=== PATIENT | female | born 1985 | race Caucasian/White ===

== ENCOUNTER 2020-12-07 19:44 | Emergency (ER) | payer BC, MEDICAID, SELFPAY ==
[2020-12-07 19:53] VITALS: BP 117/63; PULSE 110; RESP 18; TEMP 36.4; O2SAT 97; BMI 29.0
[2020-12-07] MEDS: ondansetron 4 MG Tablet PO (20:02)
--- NOTE | 2020-12-07 21:24 | W.ED.ABDPA2 ---
HPI - Abdominal Pain General: Chief Complaint: Abdominal Pain Stated Complaint: Vomiting, Diarrhea, hurting Time Seen by Provider: 12/07/20 21:16 History of Present Illness: HPI narrative: This patient presents to emergency department because of abdominal cramping, loose stools, intermittent vomiting over the past 24 hours. She is also stated that she has headache and generalized body aches. She states that she is not had much in the way of cough sore throat etc. She did have subjective fevers last night. She has had prior cholecystectomy, appendectomy, hysterectomy. She has had little urine output today. She denies any known recent exposure to COVID-19. No one else is ill at home. No bad food exposure, no recent travel, no recent antibiotic use. No blood in her stool or emesis. Quality: cramping Exacerbating factors: eating Associated Symptoms: Reports fever(s) and vomiting; Denies coffee ground emesis, dysuria, hematochezia, hematemesis, melena and syncope Review of Systems Const: Reports: fever(s) Eyes: Denies: change in vision ENMT: Denies: throat pain or odynophagia Card: Denies: syncope Resp: Denies: dyspnea or productive cough GI: Reports: vomiting; Denies: hematemesis, coffee ground emesis, hematochezia or melena : Denies: dysuria Musc: Reports: back pain and joint pain; Denies: neck pain Skin/Breast: Denies: rash or pruritus Endo: Denies: polyuria, polydipsia or cold intolerance Physical Exam Const: COMMON NORMALS: average body habitus and patient oriented x3 HENMT: COMMON NORMALS: normocephalic HEAD & SCALP: normocephalic Eye: COMMON NORMALS: Equal, round and reactive pupils present, EOMs intact bilaterally and no scleral icterus PUPIL: Yes Equal, round and reactive pupils present Neck/C-Spine: COMMON NORMALS: full ROM, no lymphadenopathy, supple and no meningeal signs Lymph: LYMPHATIC: no lymphadenopathy noted Resp: COMMON NORMALS: normal respiratory effort, No retractions, No use of accessory muscles and clear to auscultation bilaterally AUSCULTATION: clear to auscultation bilaterally Cardio: COMMON NORMALS: regular rhythm and No murmurs present (Cardio) RATE: tachycardic RHYTHM: regular rhythm GI: COMMON NORMALS: Normal to inspection, nondistended, normoactive bowel sounds present, No hepatosplenomegaly present and no masses AUSCULTATION: Yes normoactive bowel sounds PALPATION: Yes No hepatosplenomegaly present and No Rebound tenderness present OTHER: Mild tenderness no rebound or guarding. Tenderness predominantly generalized. : COMMON NORMALS: Yes no CVA tenderness BLADDER/KIDNEY EXAM: Yes no CVA tenderness Back/Pelvis: COMMON NORMALS: no CVA tenderness, thoracic and lumbar spine normal to inspection, no thoracic nor lumbar tenderness and thoraco-lumbar ROM normal THORACIC SPINE/UPPER BACK: Yes normal to inspection LUMBAR SPINE/LOWER BACK: Yes normal to inspection Extremity: COMMON NORMALS: normal to inspection, full ROM, no clubbing, cyanosis or edema, no calf tenderness and no pedal edema Neuro: COMMON NORMALS: patient oriented x3, moves all extremities, no focal motor deficits, no sensory deficits noted and gait normal MENINGEAL SIGNS: Yes no meningeal signs Psych: COMMON NORMALS: mental status grossly normal, Normal thought process present and normal affect THOUGHT PROCESS: Normal thought process present Skin: COMMON NORMALS: no rashes or lesions noted, turgor normal and no jaundice GENERAL SKIN EXAM: no rashes or lesions noted and turgor normal Course ED course: Patient received IV hydration and antiemetics. She was subjectively improved. Ancillary studies were received. COVID-19 negative. No leukocytosis. Does have moderate directly abnormal urinalysis and not combined with her malaise subjective fevers and back pain suggest possible urinary tract infection. We will go ahead and give her a gram of Ancef in the emergency department and discharge her on 5 days of Keflex with antiemetics with close return precautions. She voiced understanding. Stable for discharge. Vital Signs: Vital signs: Vital Signs Temperature 97.6 F 12/07/20 19:53 Pulse Rate 110 H 12/07/20 19:53 Respiratory Rate 20 H 12/07/20 21:52 Blood Pressure 96/72 12/07/20 21:52 Pulse Oximetry 95 12/07/20 21:52 MDM - Abdominal Pain Lab Data: Labs: Lab Results 12/07/20 12/07/20 12/07/20 21:47 21:47 22:02 WBC 7.6 10^3/uL 10^3/ uL (4.0-10.0) RBC 5.74 10^6/uL H 10 ^6/uL (4.1-5.3) Hgb 16.1 g/dL H g/dL (11.5-15.3) Hct 49.8 % H % (37.0-47.0) MCV 86.8 fl fl (81-99) MCH 28.0 pg pg (28.0-34.0) MCHC 32.3 g/dL g/dL (30.0-36.0) RDW 13.0 % % (12.1-15.1) Plt Count 264 10^3/cmm 10^3 /cmm (130-400) MPV 10.2 fL fL (7.4-10.4) Neut % (Auto) 76.5 % % Lymph % (Auto) 14.5 % % Carbon % (Auto) 8.4 % % Eos % (Auto) 0.1 % % Baso % (Auto) 0.4 % % Neut # (Auto) 5.82 10^3/uL 10^3 /uL (1.8-7.7) Lymph # (Auto) 1.1 10^3/uL 10^3/ uL (0.8-4.8) Carbon # (Auto) 0.6 10^3/uL 10^3/ uL (0.2-0.9) Eos # (Auto) 0.0 10^3/uL 10^3/ uL (0.0-0.8) Baso # (Auto) 0.0 10^3/uL 10^3/ uL (0.0-0.1) Nucleated RBC % (a uto) 0 % % Nucleated RBCs # 0.0 /100WBC /100W BC Sodium 133 mmol/L L mmol /L (136-145) Potassium 3.5 mmol/L mmol/L (3.5-5.1) Chloride 96 mmol/L L mmol/ L (98-107) Carbon Dioxide 22 mmol/L mmol/L (22-29) Anion Gap 18.5 (5-19) BUN 17 mg/dL mg/dL (6-20) Creatinine 0.8 mg/dL mg/dL (0.5-0.9) GFR Calculation 82.6 mL/min L mL/ min (90-130) Glucose 109 mg/dL mg/dL (65-115) Calculated Osmolal ity 278 mOsm/kg L mOs m/kg (285-295) Calcium 9.7 mg/dL mg/dL (8.5-10.5) Total Bilirubin 0.3 mg/dL mg/dL (0.15-1.2) AST 11 U/L U/L (0-32) ALT 12 U/L U/L (0-33) Alkaline Phosphata se 109 IU/L H IU/L (35-105) Total Protein 8.4 g/dL g/dL (6.6-8.7) Albumin 4.6 g/dL g/dL (3.5-5.2) Globulin 3.8 g/dL g/dL (1.3-4.6) Urine Color Urine Appearance Urine pH Ur Specific Gravit y Urine Protein Urine Glucose (UA) Urine Ketones Urine Blood Urine Nitrate Urine Bilirubin Urine Urobilinogen Ur Leukocyte Monique ase Urine RBC Urine WBC Ur Squamous Epith Cells Amorphous Sediment Urine Bacteria Hyaline Casts Urine Mucus SARS-CoV-2 Ag (Rap id) Negative (Negative) 12/07/20 22:11 WBC RBC Hgb Hct MCV MCH MCHC RDW Plt Count MPV Neut % (Auto) Lymph % (Auto) Carbon % (Auto) Eos % (Auto) Baso % (Auto) Neut # (Auto) Lymph # (Auto) Carbon # (Auto) Eos # (Auto) Baso # (Auto) Nucleated RBC % (a uto) Nucleated RBCs # Sodium Potassium Chloride Carbon Dioxide Anion Gap BUN Creatinine GFR Calculation Glucose Calculated Osmolal ity Calcium Total Bilirubin AST ALT Alkaline Phosphata se Total Protein Albumin Globulin Urine Color Yellow (Yellow) Urine Appearance Sl hazy (CLEAR) Urine pH 5 (5-7) Ur Specific Gravit y 1.025 (1.005-1.030) Urine Protein Trace (Negative) Urine Glucose (UA) Norm (Normal) Urine Ketones Negative (Negative) Urine Blood 3+ H (Negative) Urine Nitrate Negative (Negative) Urine Bilirubin 1+ H (Negative) Urine Urobilinogen Norm mg/dL mg/dL (Negative) Ur Leukocyte Monique ase Negative (Negative) Urine RBC 0-4 /hpf H /hpf (0-2) Urine WBC 5-10 /hpf H /hpf (0-5) Ur Squamous Epith Cells 0-4 /hpf H /hpf (0-5) Amorphous Sediment Not Reportable Urine Bacteria Trace /hpf /hpf (NONE) Hyaline Casts 10-15 /lpf H /lpf Urine Mucus 3+ /hpf /hpf SARS-CoV-2 Ag (Rap id) Discharge Plan Discharge Patient Disposition: Home Clinical Impression: UTI (urinary tract infection) Qualifiers: Urinary tract infection type: site unspecified Hematuria presence: with hematuria Qualified Code(s): N39.0 - Urinary tract infection, site not specified Condition: Stable Prescriptions: New cephalexin 500 mg capsule 500 mg PO BID 7 Days Qty: 14 RF: 0 Reglan 10 mg tablet 10 mg PO TID PRN (Reason: nausea and vomiting) Qty: 7 RF: 0 Discharge Orders: Discharge ED (Routine); Ordered 12/07/20 Ordered By: Josh Decker Discharge Diet: Advance as tolerated Discharge Activity: Resume usual activity Patient Instructions: Opioid Safety Activity Restrictions/Additional Instructions: Take the medications we have prescribed. Make sure you are drinking at least a quart of fluids a day to include water and sports drinks. Resume a bland and then a regular diet as tolerated. If your symptoms do not continue to improve or worsen at any time return to this or the nearest emergency department for reevaluation. Coding Level of Care Code ED [employer] Equipment Mechanic for Tristan Fwd Exam Comprehensive
[2020-12-07] MEDS: ketorolac 30 mg/mL INJ 15 MG IVP (21:32)
[2020-12-07 21:52] VITALS: BP 96/72; RESP 20; O2SAT 95
[2020-12-07 21:55] LABS: Basophils % 0.4 %; Eosinophils % 0.1 %; Hematocrit 49.8 % (37.0-47.0); Hemoglobin 16.1 g/dL (11.5-15.3); Lymphocytes # 1.1 10^3/uL (0.8-4.8); Lymphocytes % 14.5 %; Mean Corpuscular HGB Conc 32.3 g/dL (30.0-36.0); Mean Corpuscular Volume 86.8 fl (81-99); Mean Platelet Volume 10.2 fL (7.4-10.4); Monocytes # 0.6 10^3/uL (0.2-0.9); Monocytes % 8.4 %; Neutrophils # 5.82 10^3/uL (1.8-7.7); Neutrophils % 76.5 %; Nucleated Red Blood Cells % 0 %; Platelet Count 264 10^3/cmm (130-400); Red Blood Count 5.74 10^6/uL (4.1-5.3); White Blood Count 7.6 10^3/uL (4.0-10.0)
[2020-12-07] MEDS: metoclopramide 5 mg/mL SDV 2 mL 10 MG IVP (22:00)
[2020-12-07] MEDS: lactated ringers 1,000 ML 999 ML IV (22:00)
[2020-12-07 22:15] LABS: Alanine Aminotransferase 12 U/L (0-33); Albumin Level 4.6 g/dL (3.5-5.2); Alkaline Phosphatase 109 IU/L (35-105); Anion Gap 18.5 (5-19); Aspartate Amino Transferase 11 U/L (0-32); Blood Urea Nitrogen 17 mg/dL (6-20); Calcium 9.7 mg/dL (8.5-10.5); Carbon Dioxide 22 mmol/L (22-29); Chloride 96 mmol/L (98-107); Globulin 3.8 g/dL (1.3-4.6); Glomerular Filtration Rate 82.6 mL/min (90-130); Glucose 109 mg/dL (65-115); Osmolality Calculated 278 mOsm/kg (285-295); Potassium 3.5 mmol/L (3.5-5.1); Sodium 133 mmol/L (136-145); Total Bilirubin 0.3 mg/dL (0.15-1.2); Total Protein 8.4 g/dL (6.6-8.7)
[2020-12-07 22:33] LABS: Add Urine Microscopic? YES; Bilirubin Urine 1+ (Negative); Blood Urine 3+ (Negative); Glucose Urine UA Norm (Normal); Ketones Urine Negative (Negative); Leukocyte Esterase Urine Negative (Negative); Nitrate Urine Negative (Negative); Protein Urine Trace (Negative); Specific Gravity, Urine 1.025 (1.005-1.030); Urine Appearance SL Hazy (CLEAR); Urine Color Yellow (Yellow); Urobilinogen Urine Norm (Negative); pH Urine 5 (5-7)
[2020-12-07 22:34] LABS: Add Urine Culture? No; Bacteria Urine TRACE /hpf; Mucus Urine 3+ /hpf; RBC Urine 0-4 /hpf (0-2); Squamous Epithelial Cell Urine 0-4 /hpf (0-5)
[2020-12-07 22:38] LABS: SARS Covid-2 Antigen Negative (Negative)
[2020-12-07] MEDS: ceFAZolin 1,000 MG in sodium chloride 0.9% (plus) 50 ML 100 MG IV (22:58)
[2020-12-07 23:44] VITALS: BP 92/60; PULSE 95; RESP 20; O2SAT 96
== END 2020-12-07 23:46 | disposition home or self-care (01) ==
PROVIDERS: Nurse Practitioner Family; Emergency Provider Emergency Medicine
DX: N39.0 Urinary tract infection, site not specified (principal); Z20.822 Contact with and (suspected) exposure to COVID-19
CPT/HCPCS: 80053; 81001; 85025; 87086; 87426; 96365; 96375; 99284; J0690; J1885; J2765; Q0162

== ENCOUNTER 2020-12-09 19:44 | Emergency (ER) | payer BC, MEDICAID, SELFPAY ==
[2020-12-09 19:52] VITALS: BP 113/73; PULSE 85; RESP 20; TEMP 36.7; O2SAT 97; BMI 29.0
--- NOTE | 2020-12-09 19:57 | CTR_ITS ---
PROCEDURE INFORMATION: Exam: CT Abdomen And Pelvis With Contrast Exam date and time: 12/09/2020 7:57 PM Age: 35 years old Clinical indication: Abdominal pain; Localized; Lower; Prior surgery; Surgery date: 6+ months; Surgery type: Appy, gb; Patient HX: C/O abd pain w rectal bleeding TECHNIQUE: Imaging protocol: Computed tomography of the abdomen and pelvis with contrast. Radiation optimization: All CT scans at this facility use at least one of these dose optimization techniques: automated exposure control; mA and/or kV adjustment per patient size (includes targeted exams where dose is matched to clinical indication); or iterative reconstruction. Contrast material: OMNI 300; Contrast volume: 95 ml; Contrast route: INTRAVENOUS (IV); COMPARISON: No relevant prior studies available. RADIATION DOSE METRICS: Total DLP (mGy-cm): 1446.42 FINDINGS: Liver: Normal. No mass. Gallbladder and bile ducts: Cholecystectomy. Mild prominence of the bile ducts is most likely reservoir effect. Pancreas: Normal. No ductal dilation. Spleen: Calcified granulomas in the spleen. Adrenal glands: Normal. No mass. Kidneys and ureters: Normal. No hydronephrosis. Stomach and bowel: Scattered fluid throughout the colon to the rectum, likely indicating diarrhea. No visible wall thickening. No diverticulosis. The small bowel and stomach are unremarkable. No wall thickening or obstruction. Appendix: The appendix is absent. Intraperitoneal space: Unremarkable. No free air. No significant fluid collection. Vasculature: Unremarkable. No abdominal aortic aneurysm. Lymph nodes: Multiple prominent mesenteric lymph nodes, most likely reactive. Urinary bladder: Unremarkable as visualized. Reproductive: The uterus and ovaries are absent. Bones/joints: Unremarkable. No acute fracture. Soft tissues: Unremarkable. CT/CT abdomen pelvis w con* [id number] IMPRESSION: 1. Scattered fluid throughout the colon most likely indicates diarrhea. 2. Prominent mesenteric lymph nodes most likely represents adenitis. Radiation Dose CTDIVOL = (mGy): DLP = 1446.42 (mGy-cm)
--- NOTE | 2020-12-09 19:59 | W.ED.ABDPA2 ---
HPI - Abdominal Pain General: Chief Complaint: Abdominal Pain Stated Complaint: ABDOMINAL PAIN/ RECTAL BLEEDING Time Seen by Provider: 12/09/20 19:51 Source: patient and EMS Mode of arrival: EMS Limitations: no limitations History of Present Illness: HPI narrative: 35-year-old female states that over the last 5 to 6 days she been having diffuse abdominal pain along with vomiting and diarrhea. She was seen here 2 days ago diagnosed a UTI and states she been on antibiotics but her pain is worsened. States pain is sharp in nature and rates it a 6 out of 10. States she is now having some slight bright red blood in her diarrhea as well. Denies any fevers. Denies any worsening improving factors. Denies any vomiting blood. Associated Symptoms: Reports diarrhea, nausea and vomiting; Denies chills, dysuria and fever(s) Review of Systems Const: Denies: fever(s), chills, body aches or change in appetite Eyes: Denies: blurry vision or eye discomfort ENMT: Denies: throat pain or dental pain Card: Denies: chest pain Resp: Denies: dyspnea GI: Reports: abdominal pain, nausea, vomiting and diarrhea : Denies: dysuria Musc: Denies: neck pain or back pain Skin/Breast: Denies: rash Neuro: Denies: headache(s) Psych: Denies: depression [place]/Lymph: Denies: easy bruising All/Imm: Denies: urticaria Physical Exam Const: COMMON NORMALS: no acute distress, patient oriented x3 and healthy appearing HENMT: COMMON NORMALS: normocephalic and atraumatic HEAD & SCALP: normocephalic and atraumatic Eye: COMMON NORMALS: Equal, round and reactive pupils present and EOMs intact bilaterally PUPIL: Yes Equal, round and reactive pupils present Neck/C-Spine: COMMON NORMALS: full ROM and supple Chest: COMMONS NORMALS: normal inspection of the chest and normal palpation of entire chest wall Resp: COMMON NORMALS: normal respiratory effort, No retractions, No use of accessory muscles and clear to auscultation bilaterally AUSCULTATION: clear to auscultation bilaterally Cardio: COMMON NORMALS: regular rate, regular rhythm and No murmurs present (Cardio) RATE: regular rate RHYTHM: regular rhythm GI: COMMON NORMALS: Normal to inspection, nondistended, normoactive bowel sounds present, Soft to palpation and no masses PALPATION: Yes Soft to palpation OTHER: diffuse moderate tenderness Extremity: COMMON NORMALS: normal to inspection and full ROM Neuro: COMMON NORMALS: patient oriented x3, moves all extremities and no focal motor deficits Psych: COMMON NORMALS: mental status grossly normal, Normal thought process present and cooperative THOUGHT PROCESS: Normal thought process present Skin: COMMON NORMALS: no rashes or lesions noted and no wounds GENERAL SKIN EXAM: no rashes or lesions noted Course Vital Signs: Vital signs: Vital Signs Temperature 97.9 F 12/09/20 20:11 Pulse Rate 79 12/09/20 21:28 Respiratory Rate 15 12/09/20 21:28 Blood Pressure 112/90 12/09/20 21:28 Pulse Oximetry 94 12/09/20 21:28 MDM - Abdominal Pain MDM Narrative: Medical decision making narrative: Patient presents with abdominal pain. She said no blood in her stool here and hemoglobin is normal. CT scan of her abdomen here is normal as well along with normal blood work. We will place her on pain meds continue her antibiotics for her UTI. She does also have a very small piece of glass in her left foot. It is 2 mm and too small to be able to try to remove. She is to follow-up with PCP and return if worsening. Lab Data: Labs: Lab Results 12/09/20 12/09/20 12/09/20 20:02 20:02 20:02 WBC 6.5 10^3/uL 10^3/ uL (4.0-10.0) RBC 5.75 10^6/uL H 10 ^6/uL (4.1-5.3) Hgb 16.3 g/dL H g/dL (11.5-15.3) Hct 47.7 % H % (37.0-47.0) MCV 83.0 fl fl (81-99) MCH 28.3 pg pg (28.0-34.0) MCHC 34.2 g/dL g/dL (30.0-36.0) RDW 12.3 % % (12.1-15.1) Plt Count 289 10^3/cmm 10^3 /cmm (130-400) MPV 10.6 fL H fL (7.4-10.4) Neut % (Auto) 53.9 % % Lymph % (Auto) 27.2 % % [place] % (Auto) 16.2 % % Eos % (Auto) 1.5 % % Baso % (Auto) 0.6 % % Neut # (Auto) 3.49 10^3/uL 10^3 /uL (1.8-7.7) Lymph # (Auto) 1.8 10^3/uL 10^3/ uL (0.8-4.8) [place] # (Auto) 1.1 10^3/uL H 10^ 3/uL (0.2-0.9) Eos # (Auto) 0.1 10^3/uL 10^3/ uL (0.0-0.8) Baso # (Auto) 0.0 10^3/uL 10^3/ uL (0.0-0.1) Nucleated RBC % (a uto) 0 % % Nucleated RBCs # 0.0 /100WBC /100W BC Sodium 132 mmol/L L mmol /L (136-145) Potassium 3.2 mmol/L L mmol /L (3.5-5.1) Chloride 93 mmol/L L mmol/ L (98-107) Carbon Dioxide 22 mmol/L mmol/L (22-29) Anion Gap 20.2 H (5-19) BUN 21 mg/dL H mg/dL (6-20) Creatinine 0.6 mg/dL mg/dL (0.5-0.9) GFR Calculation 115.1 mL/min mL/m in (90-130) Glucose 107 mg/dL mg/dL (65-115) Calculated Osmolal ity 277 mOsm/kg L mOs m/kg (285-295) Calcium 9.8 mg/dL mg/dL (8.5-10.5) Total Bilirubin 0.2 mg/dL mg/dL (0.15-1.2) AST 42 U/L H U/L (0-32) ALT 47 U/L H U/L (0-33) Alkaline Phosphata se 140 IU/L H IU/L (35-105) Total Protein 8.3 g/dL g/dL (6.6-8.7) Albumin 4.5 g/dL g/dL (3.5-5.2) Globulin 3.8 g/dL g/dL (1.3-4.6) Lipase 19 U/L U/L (13-60) HCG, Qual Negative (Negative) Urine Color Urine Appearance Urine pH Ur Specific Gravit y Urine Protein Urine Glucose (UA) Urine Ketones Urine Blood Urine Nitrate Urine Bilirubin Urine Urobilinogen Ur Leukocyte Monique ase Urine RBC Urine WBC Ur Squamous Epith Cells Amorphous Sediment Urine Bacteria 12/09/20 21:31 WBC RBC Hgb Hct MCV MCH MCHC RDW Plt Count MPV Neut % (Auto) Lymph % (Auto) [place] % (Auto) Eos % (Auto) Baso % (Auto) Neut # (Auto) Lymph # (Auto) [place] # (Auto) Eos # (Auto) Baso # (Auto) Nucleated RBC % (a uto) Nucleated RBCs # Sodium Potassium Chloride Carbon Dioxide Anion Gap BUN Creatinine GFR Calculation Glucose Calculated Osmolal ity Calcium Total Bilirubin AST ALT Alkaline Phosphata se Total Protein Albumin Globulin Lipase HCG, Qual Urine Color Yellow (Yellow) Urine Appearance Clear (CLEAR) Urine pH 7 (5-7) Ur Specific Gravit y 1.010 (1.005-1.030) Urine Protein Trace (Negative) Urine Glucose (UA) Norm (Normal) Urine Ketones 1+ H (Negative) Urine Blood 3+ H (Negative) Urine Nitrate Negative (Negative) Urine Bilirubin Neg (Negative) Urine Urobilinogen Norm mg/dL mg/dL (Negative) Ur Leukocyte Monique ase Negative (Negative) Urine RBC 25-40 /hpf H /hpf (0-2) Urine WBC 0-4 /hpf H /hpf (0-5) Ur Squamous Epith Cells 0-4 /hpf H /hpf (0-5) Amorphous Sediment Not Reportable Urine Bacteria Trace /hpf /hpf (NONE) Imaging Data ^: Other Xray: Radiologist's impression: [employer] [address] [address] XRay Report Signed with Lory Patient: Wendy Ivan Unit #: [id number] : 1985 Age/Sex: 35 / F ADM Date: 12/09/20 Loc: ER Room/Bed: Attending Dr: Ordering Provider/Ordering MD: Lilli Garibay MD Date of Service: 12/09/20 Procedure(s): XR foot LT min 3V* [id number] Accession Number(s): [id number] Report Number: [id number] ADDENDUM XR/XR foot LT min 3V* [id number] On the lateral view only, there is a 2 mm linear radiopaque foreign body just beneath the skin in the plantar heel. This is 1.5 mm deep to the skin surface. Radiation Dose CTDIVOL = (mGy): DLP = (mGy-cm) Addendum Dictated By: Darrell Mireles Addendum Signed By: Darrell Mireles Signed Date/Time: 12/09/20 201 Addendum Cosigned By: PROCEDURE INFORMATION: Exam: XR Left Foot Exam date and time: 12/09/2020 8:16 PM Age: 35 years old Clinical indication: Pain; Foot; Patient HX: PT feels like she has a piece of glass in her left heel; Additional info: Fb TECHNIQUE: Imaging protocol: XR Left foot. Views: 3 or more views. COMPARISON: No relevant prior studies available. FINDINGS: Bones/joints: Normal. Soft tissues: Normal. XR/XR foot LT min 3V* [id number] IMPRESSION: No acute findings. Radiation Dose CTDIVOL = (mGy): DLP = (mGy-cm) Dictated By: Darrell Mireles Signed By: Darrell Mireles Signed Date/Time: 12/09/202199 DD/ 15 CT Abd/Pel: Radiologist's impression: [address] [address] [address] Scan Report Signed Patient: Wendy Ivan Unit #: [id number] : 1985 Age/Sex: 35 / F ADM Date: 12/09/20 Loc: ER Room/Bed: Attending Dr: Ordering Provider/Ordering MD: Lilli Garibay MD Date of Service: 12/09/20 Procedure(s): CT abdomen pelvis w con* [id number] Accession Number(s): [id number] Report Number: [id number] PROCEDURE INFORMATION: Exam: CT Abdomen And Pelvis With Contrast Exam date and time: 12/09/2020 7:57 PM Age: 35 years old Clinical indication: Abdominal pain; Localized; Lower; Prior surgery; Surgery date: 6+ months; Surgery type: Appy, gb; Patient HX: C/O abd pain w rectal bleeding TECHNIQUE: Imaging protocol: Computed tomography of the abdomen and pelvis with contrast. Radiation optimization: All CT scans at this facility use at least one of these dose optimization techniques: automated exposure control; mA and/or kV adjustment per patient size (includes targeted exams where dose is matched to clinical indication); or iterative reconstruction. Contrast material: OMNI 300; Contrast volume: 95 ml; Contrast route: INTRAVENOUS (IV); COMPARISON: No relevant prior studies available. RADIATION DOSE METRICS: Total DLP (mGy-cm): 1446.42 FINDINGS: Liver: Normal. No mass. Gallbladder and bile ducts: Cholecystectomy. Mild prominence of the bile ducts is most likely reservoir effect. Pancreas: Normal. No ductal dilation. Spleen: Calcified granulomas in the spleen. Adrenal glands: Normal. No mass. Kidneys and ureters: Normal. No hydronephrosis. Stomach and bowel: Scattered fluid throughout the colon to the rectum, likely indicating diarrhea. No visible wall thickening. No diverticulosis. The small bowel and stomach are unremarkable. No wall thickening or obstruction. Appendix: The appendix is absent. Intraperitoneal space: Unremarkable. No free air. No significant fluid collection. Vasculature: Unremarkable. No abdominal aortic aneurysm. Lymph nodes: Multiple prominent mesenteric lymph nodes, most likely reactive. Urinary bladder: Unremarkable as visualized. Reproductive: The uterus and ovaries are absent. Bones/joints: Unremarkable. No acute fracture. Soft tissues: Unremarkable. CT/CT abdomen pelvis w con* [id number] IMPRESSION: 1. Scattered fluid throughout the colon most likely indicates diarrhea. 2. Prominent mesenteric lymph nodes most likely represents adenitis. Radiation Dose CTDIVOL = (mGy): DLP = 1446.42 (mGy-cm) Dictated By: Darrell Mireles Signed By: Darrell Mireles Signed Date/Time: 12/09/202217 DD/ 56 Discharge Plan Discharge Patient Disposition: Home Clinical Impression: Foreign body in foot, left Abdominal pain Qualifiers: Abdominal location: generalized Qualified Code(s): R10.84 - Generalized abdominal pain Condition: Stable Prescriptions: New hydrocodone-acetaminophen 5-325 mg tablet 1 tab PO Q6H PRN (Reason: pain) Qty: 14 RF: 0 ondansetron 4 mg tablet,disintegrating 4 mg PO Q6H PRN (Reason: nausea and vomiting) Qty: 14 RF: 0 No Action cephalexin 500 mg capsule 500 mg PO BID 7 Days Qty: 14 RF: 0 Reglan 10 mg tablet 10 mg PO TID PRN (Reason: nausea and vomiting) Qty: 7 RF: 0 Discharge Orders: Discharge ED (Routine); Ordered 12/09/20 Ordered By: Lilli Garibay Discharge Diet: Advance as tolerated Discharge Activity: Resume usual activity Patient Instructions: Abdominal Pain (ED), Opioid Safety Coding Level of Care Code ED Leach Cell Operator for Samg Fwd Exam Comprehensive
[2020-12-09 20:11] VITALS: BP 104/69; PULSE 87; RESP 15; TEMP 36.6; O2SAT 97
[2020-12-09 20:16] LABS: Basophils % 0.6 %; Eosinophils # 0.1 10^3/uL (0.0-0.8); Eosinophils % 1.5 %; Hematocrit 47.7 % (37.0-47.0); Hemoglobin 16.3 g/dL (11.5-15.3); Lymphocytes # 1.8 10^3/uL (0.8-4.8); Lymphocytes % 27.2 %; Mean Corpuscular HGB Conc 34.2 g/dL (30.0-36.0); Mean Corpuscular Hemoglobin 28.3 pg (28.0-34.0); Mean Platelet Volume 10.6 fL (7.4-10.4); Monocytes # 1.1 10^3/uL (0.2-0.9); Monocytes % 16.2 %; Neutrophils # 3.49 10^3/uL (1.8-7.7); Neutrophils % 53.9 %; Nucleated Red Blood Cells % 0 %; Platelet Count 289 10^3/cmm (130-400); Red Blood Count 5.75 10^6/uL (4.1-5.3); Red Cell Distribution Width 12.3 % (12.1-15.1); White Blood Count 6.5 10^3/uL (4.0-10.0)
--- NOTE | 2020-12-09 20:16 | XRR_ITS ---
PROCEDURE INFORMATION: Exam: XR Left Foot Exam date and time: 12/09/2020 8:16 PM Age: 35 years old Clinical indication: Pain; Foot; Patient HX: PT feels like she has a piece of glass in her left heel; Additional info: Fb TECHNIQUE: Imaging protocol: XR Left foot. Views: 3 or more views. COMPARISON: No relevant prior studies available. FINDINGS: Bones/joints: Normal. Soft tissues: Normal. XR/XR foot LT min 3V* [id number] IMPRESSION: No acute findings. Radiation Dose CTDIVOL = (mGy): DLP = (mGy-cm)
[2020-12-09 20:22] VITALS: RESP 16
[2020-12-09] MEDS: morphine 4 mg/mL SDV 1 mL IVP (20:22)
[2020-12-09] MEDS: ondansetron 2 mg/ML SDV 2 mL 4 MG IVP (20:23)
[2020-12-09] MEDS: sodium chloride 0.9% 1,000 ML 999 ML IV (20:23)
[2020-12-09 20:28] LABS: HCG, Serum Qual Negative (Negative)
[2020-12-09 20:30] LABS: Alanine Aminotransferase 47 U/L (0-33); Albumin Level 4.5 g/dL (3.5-5.2); Alkaline Phosphatase 140 IU/L (35-105); Anion Gap 20.2 (5-19); Aspartate Amino Transferase 42 U/L (0-32); Blood Urea Nitrogen 21 mg/dL (6-20); Calcium 9.8 mg/dL (8.5-10.5); Carbon Dioxide 22 mmol/L (22-29); Chloride 93 mmol/L (98-107); Creatinine Clr Calc Pharmacy 148.4801; Globulin 3.8 g/dL (1.3-4.6); Glomerular Filtration Rate 115.1 mL/min (90-130); Glucose 107 mg/dL (65-115); Lipase 19 U/L (13-60); Osmolality Calculated 277 mOsm/kg (285-295); Potassium 3.2 mmol/L (3.5-5.1); Sodium 132 mmol/L (136-145); Total Bilirubin 0.2 mg/dL (0.15-1.2); Total Protein 8.3 g/dL (6.6-8.7)
[2020-12-09] MEDS: iohexol 300 mg/mL 100 mL Btl IV (20:56)
[2020-12-09] MEDS: HYDROmorphone 1 mg/mL INJ 1 mL IVP (21:18)
[2020-12-09 21:28] VITALS: BP 112/90; PULSE 79; RESP 15; O2SAT 94
[2020-12-09 22:03] LABS: Add Urine Microscopic? YES; Bilirubin Urine Neg (Negative); Blood Urine 3+ (Negative); Glucose Urine UA Norm (Normal); Ketones Urine 1+ (Negative); Leukocyte Esterase Urine Negative (Negative); Nitrate Urine Negative (Negative); Protein Urine Trace (Negative); Urine Appearance Clear (CLEAR); Urine Color Yellow (Yellow); Urobilinogen Urine Norm (Negative); pH Urine 7 (5-7)
[2020-12-09 22:05] LABS: Add Urine Culture? Yes; Bacteria Urine TRACE /hpf; RBC Urine 25-40 /hpf (0-2); Squamous Epithelial Cell Urine 0-4 /hpf (0-5); WBC Urine 0-4 /hpf (0-5)
[2020-12-09 22:37] VITALS: BP 120/93; PULSE 79; RESP 15; O2SAT 94
--- NOTE | 2020-12-10 13:38 | PC.NURSE ---
Critical lab results for Salmanella in stool, Dr Angeles notified of critical lab findings, patient notified of lab value results No new orders received.
== END 2020-12-09 22:40 | disposition home or self-care (01) ==
PROVIDERS: Emergency Provider Emergency Medicine
DX: R10.84 Generalized abdominal pain (principal); S90.852A Superficial foreign body, left foot, initial encounter; X58.XXXA Exposure to other specified factors, initial encounter
CPT/HCPCS: 73630; 74177; 80053; 81001; 83690; 84703; 85025; 87086; 87186; 87493; 87506; 96361; 96374; 96375; 99284; J1170; J2270; J2405; J7030; Q9967

== ENCOUNTER 2020-12-13 15:21 | Inpatient (IN) | payer BC, SELFPAY ==
[2020-12-13 15:23] VITALS: BP 113/67; PULSE 75; RESP 18; TEMP 36.8; O2SAT 97; BMI 25.9
--- NOTE | 2020-12-13 15:34 | W.ED.GENADLT ---
HPI - General Adult General: Chief complaint: Abdominal Pain Stated complaint: N/V/D X 8 DAYS Time Seen by Provider: 12/13/20 15:31 History of Present Illness: HPI narrative: HPI: [35]yo patient with the emergency room after she was diagnosed with salmonella on stool and ova. Patient tells that she has been having nausea vomiting diarrhea for the last 10 days. Patient had a stool culture was on 12/10/2019 that came back for acute Salmonella infection. He reports subjective fever and chills, denies cough, runny nose sore throat. The onset of symptom, patient has tried p.o. Zofran however without any symptomatic improvement has now been unable to tolerate p.o. Patient reports going to the bathroom every 30 minutes to 1 hour. Onset: 10 days ago Duration: ongoing Location: home Severity: moderate Review of Systems Narrative: Constitutional: +fever, +chills. HEENT: No vision changes CV: No chest pain, no palpitations PULM: No productive cough, no dyspnea. GI: +abdominal pain, +N/+V/+D. +bloody stool output : No Dysuria MSKEL: No muscle pain SKIN: No new rashes, no lesions. NEURO: No headache, no focal weakness. HEME: No visible bruises PSYCH: Normal mood PFSH ED PFSH: Medical History (Updated 12/13/20 @ 17:26 by Skyler Baez MD) Pneumonia Surgical History (Updated 12/13/20 @ 17:26 by Skyler Baez MD) History of appendectomy History of bilateral oophorectomy History of cholecystectomy History of hysterectomy Social History Smoking and tobacco status: former smoker Alcohol intake: never Adopted: Yes (grandparents) Lives independently: Yes Household members: spouse Housing: Manufactured/Mobile home Marital status: Number of children: 6 Highest education level completed: Some College, No Degree service: No Current occupational status: employed Pets and animals: Yes Current gender identity: Female Physical Exam Narrative: EXAM NARRATIVE: Head: Atraumatic Eyes: PERRL, conjunctiva without injection, eyes tracking ENT: Dry membrane moist NECK: Supple without lymphadenopathy LUNGS: LCTAB CV: RRR ABDOMEN: Soft, mild diffuse abdominal tenderness to palpation, no guarding or rebound tenderness, no McBurney?s point tenderness, no Gallego?s signs, no rovsing/obturator signs, no visible abdominal distension or hernia, no CVA or suprapubic tenderness. EXTREMITY: Normal ROM SKIN: No rash or erythema NEURO: Awake and alert. No focal weakness PSYCH: Cooperative mood and affect Course Vital Signs: Vital signs: Vital Signs Temperature 97.6 F 12/14/20 20:00 Pulse Rate 74 12/14/20 20:00 Respiratory Rate 17 12/14/20 20:00 Blood Pressure 104/67 12/14/20 20:00 Pulse Oximetry 98 12/14/20 20:00 MDM - General Adult MDM Narrative: Medical decision making narrative: 35F into the emergency room with persistent symptoms develop. Per CDC guideline, symptoms greater than 7 days will need antibiotic treatment. Patient reports severe nausea vomiting is not amenable to p.o. antibiotics at this time. [4:34pm] On reassessment: After multiple dose dose of Zofran, patient still has not been able to tolerate p.o. She received first of antibiotics here in the emergency room for prolonged Salmonella. Potassium is noted to be 2.6 today. Patient will be admitted to hospital for serial observation, abx, and electrolyte repletion. Attempt to reach health department was unsuccessful. Disposition: Admission Lab Data: Labs: Lab Results 12/13/20 12/13/20 12/13/20 15:42 15:42 15:42 WBC 11.3 10^3/uL H 10 ^3/uL (4.0-10.0) RBC 5.77 10^6/uL H 10 ^6/uL (4.1-5.3) Hgb 16.1 g/dL H g/dL (11.5-15.3) Hct 46.2 % % (37.0-47.0) MCV 80.1 fl L fl (81-99) MCH 27.9 pg L pg (28.0-34.0) MCHC 34.8 g/dL g/dL (30.0-36.0) RDW 12.3 % % (12.1-15.1) Plt Count 397 10^3/cmm 10^3 /cmm (130-400) MPV 9.8 fL fL (7.4-10.4) Lymph % (Auto) Not Reportable [place] % (Auto) Not Reportable Lymph # (Auto) Not Reportable [place] # (Auto) Not Reportable Total Counted 100 (0-100) Atypical Lymphs % 5.0 % % (0-5) Absolute Neutrophi ls 6.3 10^3/cmm 10^3 /cmm (1.4-6.5) Segmented Neutroph ils 45 % % Abs Segm Neuts (Ma n) 5.1 10/cmm 10/cmm (1.6-7.1) Band Neutrophils 11.0 % % Abs Band Neuts (Ma n) 1.2 10^3/cmm 10^3 /cmm (0.0-1.2) Absolute Lymphocyt es 2.9 10^3/cmm 10^3 /cmm (1.2-3.4) Lymphocytes (Manua l) 21 % % Monocytes (Manual) 14.0 % % Absolute Monocytes 1.6 10^3/cmm H 10 ^3/cmm (0.1-0.6) Eosinophils (Manua l) 1 % % Absolute Eosinophi ls 0.1 10^3/cmm 10^3 /cmm (0.0-0.7) Basophils (Manual) Not Reportable Metamyelocytes 1.0 % % Myelocytes 2.0 % % Smudge Cells Trace Platelet Estimate Normal (Normal) Giant Platelets Trace PT INR Sodium 131 mmol/L L mmol /L (136-145) Potassium 2.6 mmol/L L* mmo l/L (3.5-5.1) Chloride 89 mmol/L L mmol/ L (98-107) Carbon Dioxide 24 mmol/L mmol/L (22-29) Anion Gap 20.6 H (5-19) BUN 14 mg/dL mg/dL (6-20) Creatinine 0.7 mg/dL mg/dL (0.5-0.9) GFR Calculation 96.4 mL/min mL/mi n (90-130) Glucose 85 mg/dL mg/dL (65-115) Calculated Osmolal ity 272 mOsm/kg L mOs m/kg (285-295) Lactic Acid 1.2 mmol/L mmol/L (0.5-2.2) Calcium 8.8 mg/dL mg/dL (8.5-10.5) Phosphorus Magnesium Iron TIBC % Saturation Unsat Iron Binding Total Bilirubin 0.5 mg/dL mg/dL (0.15-1.2) AST 35 U/L H U/L (0-32) ALT 50 U/L H U/L (0-33) Alkaline Phosphata se 158 IU/L H IU/L (35-105) Total Protein 6.9 g/dL g/dL (6.6-8.7) Albumin 4.0 g/dL g/dL (3.5-5.2) Globulin 2.9 g/dL g/dL (1.3-4.6) Lipase 171 U/L H U/L (13-60) Procalcitonin TSH 12/13/20 12/13/20 12/13/20 15:42 15:42 15:42 WBC RBC Hgb Hct MCV MCH MCHC RDW Plt Count MPV Lymph % (Auto) [place] % (Auto) Lymph # (Auto) [place] # (Auto) Total Counted Atypical Lymphs % Absolute Neutrophi ls Segmented Neutroph ils Abs Segm Neuts (Ma n) Band Neutrophils Abs Band Neuts (Ma n) Absolute Lymphocyt es Lymphocytes (Manua l) Monocytes (Manual) Absolute Monocytes Eosinophils (Manua l) Absolute Eosinophi ls Basophils (Manual) Metamyelocytes Myelocytes Smudge Cells Platelet Estimate Giant Platelets PT 14.30 SECONDS SEC ONDS (12.1-14.9) INR 1.08 (0.8-1.2) Sodium Potassium Chloride Carbon Dioxide Anion Gap BUN Creatinine GFR Calculation Glucose Calculated Osmolal ity Lactic Acid Calcium Phosphorus 3.6 mg/dL mg/dL (2.5-4.5) Magnesium 1.9 mg/dL mg/dL (1.7-2.3) Iron TIBC % Saturation Unsat Iron Binding Total Bilirubin AST ALT Alkaline Phosphata se Total Protein Albumin Globulin Lipase Procalcitonin TSH 1.14 uIU/mL uIU/m L (0.27-4.20) 12/13/20 15:42 WBC RBC Hgb Hct MCV MCH MCHC RDW Plt Count MPV Lymph % (Auto) [place] % (Auto) Lymph # (Auto) [place] # (Auto) Total Counted Atypical Lymphs % Absolute Neutrophi ls Segmented Neutroph ils Abs Segm Neuts (Ma n) Band Neutrophils Abs Band Neuts (Ma n) Absolute Lymphocyt es Lymphocytes (Man[place] l) Monocytes (Manual) Absolute Monocytes Eosinophils (Manua l) Absolute Eosinophi ls Basophils (Manual) Metamyelocytes Myelocytes Smudge Cells Platelet Estimate Giant Platelets PT INR Sodium Potassium Chloride Carbon Dioxide Anion Gap BUN Creatinine GFR Calculation Glucose Calculated Osmolal ity Lactic Acid Calcium Phosphorus Magnesium Iron 52 ug/dL ug/dL (37-145) TIBC 285 mcg/dl mcg/dl % Saturation 18.2 % L % (20-50) Unsat Iron Binding 233 ug/dL ug/dL (112-347) Total Bilirubin AST ALT Alkaline Phosphata se Total Protein Albumin Globulin Lipase Procalcitonin 0.15 ng/mL ng/mL (0-0.5) TSH Discharge Plan Discharge Patient Disposition: Admitted As Inpatient Admit Provider: Skyler Baez Clinical Impression: Intractable vomiting, Bloody diarrhea, Infection, salmonella, Acute hypokalemia Condition: Stable Coding Level of Care Code ED Residential Care Facility Manager for Tristan Lopez
[2020-12-13 15:49] LABS: Hematocrit 46.2 % (37.0-47.0); Hemoglobin 16.1 g/dL (11.5-15.3); Mean Corpuscular HGB Conc 34.8 g/dL (30.0-36.0); Mean Corpuscular Hemoglobin 27.9 pg (28.0-34.0); Mean Corpuscular Volume 80.1 fl (81-99); Mean Platelet Volume 9.8 fL (7.4-10.4); Platelet Count 397 10^3/cmm (130-400); Red Blood Count 5.77 10^6/uL (4.1-5.3); Red Cell Distribution Width 12.3 % (12.1-15.1); White Blood Count 11.3 10^3/uL (4.0-10.0)
[2020-12-13] MEDS: ondansetron 4 MG Tablet PO (15:50)
[2020-12-13] MEDS: sodium chloride 0.9% 1,000 ML 999 ML IV (15:50)
[2020-12-13 16:17] LABS: Alanine Aminotransferase 50 U/L (0-33); Alkaline Phosphatase 158 IU/L (35-105); Anion Gap 20.6 (5-19); Aspartate Amino Transferase 35 U/L (0-32); Blood Urea Nitrogen 14 mg/dL (6-20); Calcium 8.8 mg/dL (8.5-10.5); Carbon Dioxide 24 mmol/L (22-29); Chloride 89 mmol/L (98-107); Globulin 2.9 g/dL (1.3-4.6); Glomerular Filtration Rate 96.4 mL/min (90-130); Glucose 85 mg/dL (65-115); Lipase 171 U/L (13-60); Osmolality Calculated 272 mOsm/kg (285-295); Potassium 2.6 mmol/L (3.5-5.1); Sodium 131 mmol/L (136-145); Total Bilirubin 0.5 mg/dL (0.15-1.2); Total Protein 6.9 g/dL (6.6-8.7)
[2020-12-13] MEDS: ciprofloxacin 400 MG/200 ML PREMIX 200 MG IV (16:23)
--- NOTE | 2020-12-13 16:37 | PM.HP ---
Providers/Chief Complaint Primary Care Provider: SAGE Jimenez Chief Complaint: N/V/D X 8 DAYS History of Present Illness Wendy Ivan is a 35 year old female with no significant past medical history presented to the ER today with ongoing nausea vomiting, headache, diarrhea for last 8 days. Patient states she is not able to eat anything for last 8 days because of nausea and vomiting and mild abdominal pain. She also had few episodes of blood mixed in her bowel movements. Today she was called to come to the ER because stool studies done from December 09 came back positive for Salmonella. Patient states she lives with her and 6 children. Nobody she knows is having similar complaints. She denies of having any recent travels other than going to [place] few weeks ago. She drinks well water. She ate new fish few weeks ago. Denies any other change in eating habits. Usually eat cold cuts. Examination patient lying comfortably in bed, dehydrated. Blood work in the ER showed a white count of 11.3, hemoglobin of 16, INR 1.08, sodium 131, potassium of 2.6, AST/ALT of 35/50, alkaline phosphatase of 158, UA negative for nitrite or leukoesterase Review of Systems General: Reports: 10 or more systems reviewed and unremarkable except in HPI and below Const: Denies: fever(s), chills, body aches, change in appetite, change in weight, malaise, night sweats, diaphoresis, change in sleep pattern, daytime sleepiness or snoring Eyes: Denies: change in vision, blurry vision, photophobia, eye discomfort or eye discharge ENMT: Denies: throat pain, enlarged tonsils, hoarseness, mouth pain, oral sores, dry mouth, tinnitus, nasal congestion or post nasal drip Card: Denies: chest pain, palpitations, irregular heart rhythm, edema, swelling of feet/ankles, lightheadedness, syncope, pre-syncope, dyspnea on exertion, orthopnea, leg pain with exertion or acrocyanosis Resp: Denies: dyspnea, productive cough, non-productive cough, wheezing, stridor, pain on inspiration, change in phlegm color, hemoptysis or chest congestion GI: Denies: abdominal pain, nausea, vomiting, hematemesis, coffee ground emesis, dysphagia, heartburn, diarrhea, constipation, bloating, GI cramping, change in bowel habits, pain on defecation, hematochezia or melena : Denies: flank pain, dysuria, urinary frequency, urinary urgency, urinary hesitancy, nocturia or hematuria Musc: Denies: neck pain, back pain, extremity pain, joint pain, joint swelling, joint redness, joint stiffness or limited range of motion Neuro: Denies: headache(s), numbness in extremities, weakness in extremities, sensory changes, lack of coordination, difficulty walking, frequent falls, dizziness, vertigo, confusion, Slurred speech present, difficulty communicating thoughts or seizure-like activity Psych: Denies: anxiety, depression, mood swings, panic attacks, hopelessness or irritability Endo: Denies: polyuria, polydipsia, tired all the time, cold intolerance, excessive sweating, flushing or heat intolerance [place]/Lymph: Denies: easy bruising or easy bleeding All/Imm: Denies: tongue swelling, facial swelling or acute wheezing Medications/Allergies Home Medications Medication Instructions Recorded Confirmed Last Taken Type cephalexin 500 mg PO BID 7 Days #14 cap 12/07/20 12/13/20 12/13/20 07:30 Rx metoclopramide HCl [Reglan] 10 mg PO TID PRN #7 tab 12/07/20 12/13/20 12/11/20 Rx hydrocodone-acetaminophen 1 tab PO Q6H PRN #14 tab 12/09/20 12/13/20 12/12/20 Rx ondansetron 4 mg PO Q6H PRN #14 tab 12/09/20 12/13/20 12/13/20 07:30 Rx acetaminophen [Tylenol Ex Str 1,000 mg PO Q4H PRN 12/13/20 12/13/20 Unknown History Rapid Release] Allergies Allergy/AdvReac Type Severity Reaction Status Date / Time No Known Allergies Allergy Verified 12/13/20 16:12 PFSH Acute PFSH: Medical History (Updated 12/13/20 @ 17:26 by Skyler Baez MD) Pneumonia Surgical History (Updated 12/13/20 @ 17:26 by Skyler Baez MD) History of appendectomy History of bilateral oophorectomy History of cholecystectomy History of hysterectomy Social History Smoking and tobacco status: former smoker Alcohol intake: never Adopted: Yes (grandparents) Lives independently: Yes Household members: spouse Housing: Manufactured/Mobile home Marital status: Number of children: 6 Highest education level completed: Some College, No Degree service: No Current occupational status: employed Pets and animals: Yes Current gender identity: Female Vitals/I&O/Wt Last Vital Signs Temp 98.2 F 12/13/20 15:23 Pulse 75 12/13/20 15:23 Resp 18 12/13/20 15:23 BP 113/67 12/13/20 15:23 Pulse Ox 97 12/13/20 15:23 Weight last 48 hrs Weight 77.564 kg Physical Exam Narrative: EXAM NARRATIVE: General: No acute distress, AO x3, dehydrated HEENT: PERRLA, pupils bilaterally equal and reactive Chest: Normal vesicular breath sounds, no added sounds, equal good air entry bilaterally CVS: S1-S2 regular, no murmurs, no tachycardia, no gallops, no rubs Abdomen: Soft, generalized tenderness more so in lower quadrant, no organomegaly, bowel sounds present Neuro: No focal deficits, no facial deformity, AO x3, power 5/5 in all limbs Data : 12/13/20 15:42 12/13/20 15:42 A&P Assessment and plan (1) Bloody diarrhea: Status: Acute (2) Intractable vomiting: Status: Acute (3) Infection, salmonella: Status: Acute (4) Acute hypokalemia: Status: Acute Additional A&P Information Salmonella gastroenteritis: Check blood culture, lactate, urine culture. Confirmed with lab. Susceptibilities noted. Susceptible to ampicillin, ceftriaxone, ciprofloxacin. Start on IV ceftriaxone 1 g daily. Normal saline with 20 mEq of potassium at 100 cc/h. Isolation precautions. Will inform state regarding further recommendations for contact. Protonix 40 mg IV every 12 hourly. Zofran, Phenergan as needed. Morphine 1 mg IV every 4 hours as needed for pain. Hypokalemia/Hyponatremia: Most likely secondary dehydration and recurrent diarrhea. Replace with fluid as above. 40 mg potassium every 2 hourly for 3 doses. Repeat BMP tomorrow morning. Check magnesium, phosphorus. Transaminitis: Most likely secondary to gastroenteritis. We will continue to follow. Check iron panel, TSH, HbA1c, lipid panel. Full code. Mechanical soft diet. SCDs. Infection control consult. Attestations Medical Necessity Statement*: Admission for more than 2 midnights due to poor oral intake, multiple electrolyte abnormalities secondary to Salmonella gastroenteritis Time Spent in Patient Care: Greater than 35 minutes (>than 50% of time spent in counselling and/or direct pt care on unit). Coding Level of Care Code Acute Channel Lip Stiffener Insoles for g Fwd Diagnoses Bloody diarrhea R19.7 Intractable vomiting R11.10 Infection, salmonella A02.9 Acute hypokalemia E87.6
[2020-12-13 16:49] LABS: Lactic Sepsis W/Reflex 1.2 mmol/L (0.5-2.2)
[2020-12-13 16:56] LABS: Absolute Eosinophils 0.1 10^3/cmm (0.0-0.7); Absolute Neutrophil 6.3 10^3/cmm (1.4-6.5); Absolute Segmented Neutrophil 5.1 10/cmm (1.6-7.1); Band Neutrophils Absolute 1.2 10^3/cmm (0.0-1.2); Eosinophils 1 %; Giant Platelets Trace; Lymphocytes 21 %; Lymphocytes Absolute 2.9 10^3/cmm (1.2-3.4); Monocytes Absolute 1.6 10^3/cmm (0.1-0.6); Platelet Estimate Normal (Normal); Segmented Neutrophils 45 %; Total Cells Counted 100 (0-100)
[2020-12-13 16:57] LABS: INR 1.08 (0.8-1.2); Smudge Cells Trace
[2020-12-13 16:59] LABS: Thyroid Stimulating Hormone 1.14 uIU/mL (0.27-4.20)
[2020-12-13 17:08] LABS: Magnesium 1.9 mg/dL (1.7-2.3); Phosphorus 3.6 mg/dL (2.5-4.5)
[2020-12-13] MEDS: cefTRIAXone 1,000 MG in sodium chloride 0.9% (plus) 50 ML 100 MG IV (17:46)
[2020-12-13] MEDS: lidocaine 1% 5 ML in potassium chloride premix 100 ML 50 ML IV (18:11)
[2020-12-13 18:15] LABS: Procalcitonin 0.15 ng/mL (0-0.5)
[2020-12-13] MEDS: potassium chloride ER 20 mEq Tablet 40 MEQ PO (18:18)
[2020-12-13 18:30] VITALS: BP 122/76; PULSE 75; RESP 18; O2SAT 99
[2020-12-13 18:30] LABS: Iron 52 ug/dL (37-145); Percent Saturation 18.2 % (20-50); Total Iron Binding Capacity 285 mcg/dl; Unsaturated Iron Binding 233 ug/dL (112-347)
[2020-12-13 18:53] LABS: Bilirubin Urine Neg (Negative); Glucose Urine UA Norm (Normal); Leukocyte Esterase Urine Negative (Negative); Nitrate Urine Negative (Negative); Protein Urine Neg (Negative); Urine Appearance Clear (CLEAR); Urine Color Straw (Yellow); Urobilinogen Urine Norm (Negative); pH Urine 7 (5-7)
[2020-12-13 18:54] LABS: Add Urine Culture? No; Add Urine Microscopic? YES; Bacteria Urine 1+ /hpf; Blood Urine 3+ (Negative); Ketones Urine 1+ (Negative)
[2020-12-13] MEDS: ondansetron 2 mg/ML SDV 2 mL 4 MG IVP (19:30)
[2020-12-13 20:04] VITALS: BP 124/77; PULSE 74; RESP 20; O2SAT 99
[2020-12-13 20:05] VITALS: BP 114/71; PULSE 81; RESP 19; TEMP 36.7; O2SAT 97; BMI 27.6
[2020-12-13] MEDS: sodium chlor 0.9% + KCl 20 mEq 20 MEQ/1,000 ML BAG 100 MEQ IV (23:07)
[2020-12-13 23:31] VITALS: O2SAT 96
[2020-12-14] VITALS: BP 102/60; PULSE 75; RESP 18; TEMP 36.8; O2SAT 97
[2020-12-14] MEDS: ondansetron 2 mg/ML SDV 2 mL 4 MG IVP (01:40)
[2020-12-14 04:00] VITALS: BP 104/65; PULSE 84; RESP 18; TEMP 36.7; O2SAT 97
[2020-12-14 05:21] LABS: INR 1.07 (0.8-1.2)
[2020-12-14 05:25] LABS: Basophils # 0.2 10^3/uL (0.0-0.1); Basophils % 1.3 %; Eosinophils # 0.2 10^3/uL (0.0-0.8); Eosinophils % 1.7 %; Hematocrit 43.9 % (37.0-47.0); Hemoglobin 14.7 g/dL (11.5-15.3); Lymphocytes # 3.3 10^3/uL (0.8-4.8); Lymphocytes % 26.4 %; Mean Corpuscular HGB Conc 33.5 g/dL (30.0-36.0); Mean Corpuscular Hemoglobin 27.6 pg (28.0-34.0); Mean Corpuscular Volume 82.4 fl (81-99); Mean Platelet Volume 10.2 fL (7.4-10.4); Monocytes # 1.2 10^3/uL (0.2-0.9); Monocytes % 9.3 %; Neutrophils # 6.67 10^3/uL (1.8-7.7); Neutrophils % 53.7 %; Nucleated Red Blood Cells % 0 %; Platelet Count 415 10^3/cmm (130-400); Red Blood Count 5.33 10^6/uL (4.1-5.3); Red Cell Distribution Width 12.4 % (12.1-15.1); White Blood Count 12.4 10^3/uL (4.0-10.0)
[2020-12-14 05:47] LABS: Alanine Aminotransferase 50 U/L (0-33); Albumin Level 3.8 g/dL (3.5-5.2); Alkaline Phosphatase 142 IU/L (35-105); Anion Gap 14.9 (5-19); Aspartate Amino Transferase 33 U/L (0-32); Blood Urea Nitrogen 9 mg/dL (6-20); Calcium 8.7 mg/dL (8.5-10.5); Carbon Dioxide 24 mmol/L (22-29); Chloride 98 mmol/L (98-107); Globulin 2.8 g/dL (1.3-4.6); Glomerular Filtration Rate 82.6 mL/min (90-130); Glucose 84 mg/dL (65-115); Magnesium 1.9 mg/dL (1.7-2.3); Osmolality Calculated 276 mOsm/kg (285-295); Phosphorus 2.9 mg/dL (2.5-4.5); Sodium 134 mmol/L (136-145); Total Bilirubin 0.4 mg/dL (0.15-1.2); Total Protein 6.6 g/dL (6.6-8.7)
[2020-12-14 06:17] LABS: Potassium 2.9 mmol/L (3.5-5.1)
[2020-12-14 06:36] LABS: Estmated Average Glucose 108; Hemoglobin A1C 5.4 % (4.0-6.0)
[2020-12-14 06:54] LABS: Slide Review Slide Review Perform
[2020-12-14 08:00] VITALS: BP 99/62; PULSE 73; RESP 18; TEMP 36.8; O2SAT 97
[2020-12-14] MEDS: metoclopramide 5 mg/mL SDV 2 mL IVP (09:33)
[2020-12-14] MEDS: sodium chlor 0.9% + KCl 20 mEq 20 MEQ/1,000 ML BAG 100 MEQ IV ×2 (09:34→22:18)
[2020-12-14] MEDS: potassium chloride ER 20 mEq Tablet 40 MEQ PO ×2 (10:42→14:44)
--- NOTE | 2020-12-14 10:42 | PC.NUTR ---
Pt is currently on a Mechanical Soft Diet and recommend changing to a GI soft diet as it is low in fiber and easy to digest.
[2020-12-14 11:37] VITALS: BP 92/53; PULSE 74; RESP 16; TEMP 36.7; O2SAT 99
--- NOTE | 2020-12-14 12:23 | PC.CHAP ---
Pastoral Care Encounter/Spiritual Assessment Type of Contact [] Declined bowling pin refinisher visit [] Patient/Family/Request visit [] Outpatient visit [] Follow-up visit [] Physician referral [] Code/Alert [x] Routine visit [] Staff referral [] Actively dying [] Patient sleeping [] Family support [] [] Out of room [] Palliative care [] [x] Receiving care in room [] Pre-surgical visit [] Trauma [] Long length of stay [] ICU visit [] Other: Relational/Emotional Strength [x] Patient feels connected with others/family/visitors/staff [] Distress [] Loneliness/isolation [] Abandonment Spirituality of Patient [x] Person of Josefina [] Attends Yazidism of their Josefina [x] Believes in Prayer [] Reads Bible or Pentecostal materials [] There are Spiritual issues to be addressed Egg Breaker Interventions [x] Prayer [x] Active listening [x] Non-anxious presence [x] Spiritual/emotional support [] Crisis/trauma care [x] Spiritual counseling [] Bereavement support [] Provided bereavement packet [] Provided Bible/devotional materials [] Provided toy/stuffed animal, coloring book to patient or family member [] Provided Communion [] Anointing/[place] [] Salvation [x] Completed spiritual assessment [] Other: Impact on Illness or Injury [] Angry [] Fearful [x] Anxious [] Often cries [] Exhaustion [] Unable to work [] Unable to attend rastafarian [] Unable to walk/stand [] Unable to read [] Unable to drive [] Unable to eat/drink [] Unable to sleep [] Unable to be with family [] Patient intubated [] Other: Summary N/V/D has an up set stomock not feeling good has a good attitude snd will go home soon Time spent with patient 10 mins
--- NOTE | 2020-12-14 12:25 | PM.PN ---
Subjective Subjective: Interval history: Patient has remained hemodynamically stable and afebrile. Tolerating diet well. Having nausea with diet but no vomiting. Continues to have diarrhea. No more bloody bowel movements. Has had around 4-5 episodes of diarrheal bowel movement since last night. Vitals/I&O/Wt Last Vital Signs Temp 98.0 F 12/14/20 11:37 Pulse 74 12/14/20 11:37 Resp 16 12/14/20 11:37 BP 92/53 12/14/20 11:37 Pulse Ox 99 12/14/20 11:37 12/13/20 12/14/20 12/14/20 22:59 06:59 14:59 Intake Total 200 / 200 1000 / 1000 Balance 200 / 200 1000 / 1000 Weight last 48 hrs Weight 79.742 kg Weight 79.832 kg Weight 77.564 kg Physical Exam Narrative: EXAM NARRATIVE: General: No acute distress, AO x3, dehydrated HEENT: PERRLA, pupils bilaterally equal and reactive Chest: Normal vesicular breath sounds, no added sounds, equal good air entry bilaterally CVS: S1-S2 regular, no murmurs, no tachycardia, no gallops, no rubs Abdomen: Soft, generalized tenderness more so in lower quadrant, no organomegaly, bowel sounds present Neuro: No focal deficits, no facial deformity, AO x3, power 5/5 in all limbs Data : 12/14/20 04:53 12/14/20 04:53 Micro: Microbiology 12/13/20 17:15 Blood Culture - Preliminary Blood SPECIMEN COLLECTED 12/13/20 15:42 Blood Culture - Preliminary Blood SPECIMEN COLLECTED A&P Assessment and plan (1) Bloody diarrhea: Status: Acute (2) Intractable vomiting: Status: Acute (3) Infection, salmonella: Status: Acute (4) Acute hypokalemia: Status: Acute Additional A&P Information Salmonella gastroenteritis: Check blood culture, lactate, urine culture. Confirmed with lab. Susceptibilities noted. Susceptible to ampicillin, ceftriaxone, ciprofloxacin. Continue with IV ceftriaxone 1 mg daily. Normal saline with 20 mEq of potassium at 100 cc/h. Isolation precautions. Will inform state regarding further recommendations for contact. Protonix 40 mg IV every 12 hourly. Zofran, Phenergan as needed. Morphine 1 mg IV every 4 hours as needed for pain. Hypokalemia/Hyponatremia: Most likely secondary dehydration and recurrent diarrhea. Hyponatremia resolving. Persistent hypokalemia. Replace with fluid as above. 40 mg potassium every 2 hourly for 3 doses. Repeat BMP in afternoon. Transaminitis: Most likely secondary to gastroenteritis. Stable. Will monitor hepatitis panel and HIV. Check iron panel, TSH, HbA1c, lipid panel. Full code. Mechanical soft diet. SCDs. Discharge planning: If patient is able to continue to tolerate oral diet in next 24 hours we will plan to discharge. Home with caregiver. Attestations Medical Necessity Statement*: Patient for management of Salmonella gastroenteritis, poor oral intake, persistent hyperkalemia Time Spent in Patient Care: Greater than 35 minutes (>than 50% of time spent in counselling and/or direct pt care on unit). Coding Level of Care Code Acute [place] Repairer for Tristan Lopez Diagnoses Bloody diarrhea R19.7 Intractable vomiting R11.10 Infection, salmonella A02.9 Acute hypokalemia E87.6
[2020-12-14 15:05] LABS: HIV 1 & 2 Antibody Non-Reactive (Non-Reactiv); HIV 1 & 2 Antigen Non-Reactive (Non-Reactiv)
[2020-12-14 15:29] LABS: Hepatitis A Antibody IgM Non-Reactive (Nonreactive); Hepatitis B Core AB, Total Non-Reactive (Nonreactive); Hepatitis B Surface AB 20.2 (11.5-1000); Hepatitis B Surface Antigen Non-Reactive (Nonreactive); Hepatitis C Virus Antibody Non-Reactive (Nonreactive)
[2020-12-14] MEDS: cefTRIAXone 1,000 MG in sodium chloride 0.9% (plus) 50 ML 100 MG IV (17:40)
[2020-12-14] MEDS: potassium chloride oral liq 20 mEq/15 mL UDC 80 MEQ PO (17:44)
--- NOTE | 2020-12-14 18:59 | PC.NURSE ---
Report to Carolyn BARAJAS at this time.
--- NOTE | 2020-12-14 19:11 | CTR_ITS ---
PROCEDURE INFORMATION: Exam: CT Abdomen And Pelvis With Contrast Exam date and time: 12/14/2020 7:11 PM Age: 35 years old Clinical indication: Abdominal pain; Prior surgery; Surgery type: Gb, appy, hyst; Additional info: Salmonella gastro, blood cx positive TECHNIQUE: Imaging protocol: Computed tomography of the abdomen and pelvis with contrast. Radiation optimization: All CT scans at this facility use at least one of these dose optimization techniques: automated exposure control; mA and/or kV adjustment per patient size (includes targeted exams where dose is matched to clinical indication); or iterative reconstruction. Contrast material: OMNI 300; Contrast volume: 95 ml; Contrast route: INTRAVENOUS (IV); COMPARISON: CT abdomen pelvis w con* [id number] 12/09/2020 8:52 PM RADIATION DOSE METRICS: Total DLP (mGy-cm): 1693.82 FINDINGS: Liver: Normal. No mass. Gallbladder and bile ducts: Cholecystectomy. Nondilated biliary system. Pancreas: Normal. No ductal dilation. Spleen: Granulomas in the spleen. Negative for splenomegaly. Adrenal glands: Normal. No mass. Kidneys and ureters: Wedge-shaped cortical defect in the upper pole of right kidney. Negative for hydronephrosis. Small nonobstructing right renal upper pole stones. Stomach and bowel: No inflammatory bowel wall thickening. Negative for bowel obstruction. Negative for bowel perforation. Moderate volume of fluid throughout large bowel. Appendix: Appendectomy. Intraperitoneal space: Unremarkable. No free air. No significant fluid collection. Vasculature: Unremarkable. No abdominal aortic aneurysm. Lymph nodes: Increased number of mildly prominent lymph nodes diffusely throughout mediastinum. Unremarkable enhancement pattern. Urinary bladder: Unremarkable as visualized. Reproductive: Hysterectomy. Bones/joints: Unremarkable. No acute fracture. Soft tissues: Unremarkable. CT/CT abdomen pelvis w con* [id number] IMPRESSION: 1. No acute inflammatory changes in the abdomen or pelvis. 2. Fluid-filled large bowel could represent a sequela of enterocolitis. No significant change from prior in this finding. 3. Mildly prominent increased number of mesenteric lymph nodes similar to prior imaging. Radiation Dose CTDIVOL = (mGy): DLP = 1693.82 (mGy-cm)
[2020-12-14 19:21] LABS: Alanine Aminotransferase 42 U/L (0-33); Albumin Level 3.5 g/dL (3.5-5.2); Alkaline Phosphatase 128 IU/L (35-105); Aspartate Amino Transferase 28 U/L (0-32); Blood Urea Nitrogen 7 mg/dL (6-20); Calcium 8.4 mg/dL (8.5-10.5); Carbon Dioxide 20 mmol/L (22-29); Chloride 102 mmol/L (98-107); Globulin 2.8 g/dL (1.3-4.6); Glomerular Filtration Rate 142.1 mL/min (90-130); Glucose 89 mg/dL (65-115); Osmolality Calculated 275 mOsm/kg (285-295); Sodium 134 mmol/L (136-145); Total Bilirubin 0.2 mg/dL (0.15-1.2); Total Protein 6.3 g/dL (6.6-8.7)
[2020-12-14] MEDS: iohexol 300 mg/mL 100 mL Btl IV (19:43)
[2020-12-14 20:00] VITALS: BP 104/67; PULSE 74; RESP 17; TEMP 36.4; O2SAT 98
[2020-12-15] VITALS: BP 106/63; PULSE 75; RESP 17; TEMP 37.1; O2SAT 98
[2020-12-15 04:00] VITALS: BP 92/58; PULSE 77; RESP 16; TEMP 36.7; O2SAT 96
[2020-12-15 04:22] LABS: Amphetamines Screen Urine Negative (Negative); Barbiturates Screen Urine Negative (Negative); Benzodiazepines Screen Urine Negative (Negative); Cocaine Screen Urine Negative (Negative); Opiate Screen Urine Negative (Negative); PCP Screen Urine Negative (Negative); THC Screen Urine Negative (Negative)
[2020-12-15 05:38] LABS: Basophils # 0.1 10^3/uL (0.0-0.1); Basophils % 0.8 %; Eosinophils # 0.3 10^3/uL (0.0-0.8); Eosinophils % 2.2 %; Hematocrit 37.3 % (37.0-47.0); Hemoglobin 12.6 g/dL (11.5-15.3); Lymphocytes # 4.1 10^3/uL (0.8-4.8); Lymphocytes % 33.6 %; Mean Corpuscular HGB Conc 33.8 g/dL (30.0-36.0); Mean Corpuscular Hemoglobin 28.5 pg (28.0-34.0); Mean Corpuscular Volume 84.4 fl (81-99); Mean Platelet Volume 9.8 fL (7.4-10.4); Monocytes # 1.2 10^3/uL (0.2-0.9); Neutrophils # 5.71 10^3/uL (1.8-7.7); Neutrophils % 46.9 %; Nucleated Red Blood Cells % 0 %; Platelet Count 383 10^3/cmm (130-400); Red Blood Count 4.42 10^6/uL (4.1-5.3); Red Cell Distribution Width 12.8 % (12.1-15.1); White Blood Count 12.2 10^3/uL (4.0-10.0)
[2020-12-15 05:51] LABS: Alanine Aminotransferase 41 U/L (0-33); Albumin Level 3.2 g/dL (3.5-5.2); Alkaline Phosphatase 124 IU/L (35-105); Anion Gap 11.3 (5-19); Aspartate Amino Transferase 29 U/L (0-32); Blood Urea Nitrogen 4 mg/dL (6-20); Calcium 7.7 mg/dL (8.5-10.5); Carbon Dioxide 21 mmol/L (22-29); Chloride 105 mmol/L (98-107); Globulin 2.9 g/dL (1.3-4.6); Glomerular Filtration Rate 115.1 mL/min (90-130); Glucose 95 mg/dL (65-115); Osmolality Calculated 275 mOsm/kg (285-295); Potassium 3.3 mmol/L (3.5-5.1); Sodium 134 mmol/L (136-145); Total Bilirubin 0.2 mg/dL (0.15-1.2); Total Protein 6.1 g/dL (6.6-8.7)
[2020-12-15 07:42] LABS: Slide Review Slide Review Perform
[2020-12-15 07:57] VITALS: BP 91/53; PULSE 75; RESP 16; TEMP 37; O2SAT 97
[2020-12-15] MEDS: sodium chlor 0.9% + KCl 20 mEq 20 MEQ/1,000 ML BAG 100 MEQ IV ×2 (07:57→16:58)
[2020-12-15] MEDS: ondansetron 2 mg/ML SDV 2 mL 4 MG IVP (08:04)
[2020-12-15 11:26] VITALS: BP 90/54; PULSE 73; RESP 16; TEMP 37.1; O2SAT 98
--- NOTE | 2020-12-15 12:30 | PM.PN ---
Subjective Subjective: Interval history: No acute events overnight. Patient more awake today. Denies any any vomiting but still having some nausea. Tolerating diet well. Still having diarrhea but better than yesterday. Has remained hemodynamically stable and afebrile. Vitals/I&O/Wt Last Vital Signs Temp 98.7 F 12/15/20 11:26 Pulse 73 12/15/20 11:26 Resp 16 12/15/20 11:26 BP 90/54 12/15/20 11:26 Pulse Ox 98 12/15/20 11:26 12/14/20 12/15/20 12/15/20 22:59 06:59 14:59 Intake Total 1250 / 2250 320 / 2570 965 / 965 Balance 1250 / 2250 320 / 2570 965 / 965 Weight last 48 hrs Weight 81.873 kg Weight 79.742 kg Weight 79.832 kg Weight 77.564 kg Physical Exam Narrative: EXAM NARRATIVE: General: No acute distress, AO x3, dehydrated HEENT: PERRLA, pupils bilaterally equal and reactive Chest: Normal vesicular breath sounds, no added sounds, equal good air entry bilaterally CVS: S1-S2 regular, no murmurs, no tachycardia, no gallops, no rubs Abdomen: Soft, generalized tenderness more so in lower quadrant, no organomegaly, bowel sounds present Neuro: No focal deficits, no facial deformity, AO x3, power 5/5 in all limbs Data : 12/15/20 05:21 12/15/20 05:21 Micro: Microbiology 12/14/20 20:10 Blood Culture - Preliminary Blood SPECIMEN COLLECTED 12/14/20 20:00 Blood Culture - Preliminary Blood SPECIMEN COLLECTED 12/13/20 15:42 Blood Culture - Preliminary Blood Gram Negative Rods 12/13/20 17:15 Blood Culture - Preliminary Blood NEGATIVE TO DATE A&P Assessment and plan (1) Gram-negative bacteremia: Status: Acute (2) Infection, salmonella: Status: Acute (3) Bloody diarrhea: Status: Acute (4) Intractable vomiting: Status: Acute (5) Acute hypokalemia: Status: Acute Additional A&P Information Gram-negative bacteremia: Blood culture from admission positive for gram-negative rods. Cannot rule out Salmonella bacteremia. Repeat blood cultures sent. Keep mean arterial pressure over 65. Normal saline with 20 mg of potassium at 100 cc/h. If blood cultures come back positive for Salmonella will consult ID. Salmonella gastroenteritis: Continue with IV ceftriaxone 2 g daily. Fluid as above. We will avoid Imodium. No concerns for toxic megacolon for now on CT abdomen pelvis. Isolation precautions. Protonix 40 mg IV every 12 hourly. Zofran, Phenergan as needed. Morphine 1 mg IV every 4 hours as needed for pain. Hypokalemia/Hyponatremia: Most likely secondary dehydration and recurrent diarrhea. Hyponatremia resolving. Persistent hypokalemia. Replace with fluid as above. Replete 120 mg of potassium with 40 mEq in 3 divided doses. Check magnesium, phosphorus Repeat BMP in afternoon. Transaminitis: Most likely secondary to gastroenteritis. Stable. Will monitor hepatitis panel and HIV. Check iron panel, TSH, HbA1c, lipid panel. Full code. Mechanical soft diet. SCDs. Attestations Medical Necessity Statement*: Patient requires further hospitalization for management of gram-negative bacteremia, Salmonella gastroenteritis Time Spent in Patient Care: Greater than 35 minutes (>than 50% of time spent in counselling and/or direct pt care on unit). Coding Level of Care Code Acute Credit Administration Manager for Tristan Lopez Diagnoses Gram-negative bacteremia R78.81 Infection, salmonella A02.9 Bloody diarrhea R19.7 Intractable vomiting R11.10 Acute hypokalemia E87.6
[2020-12-15 13:14] LABS: Magnesium 1.7 mg/dL (1.7-2.3); Phosphorus 2.3 mg/dL (2.5-4.5)
--- NOTE | 2020-12-15 13:17 | PC.CHAP ---
Pastoral Care Encounter/Spiritual Assessment Type of Contact [] Declined corporate driver visit [] Patient/Family/Request visit [] Outpatient visit [xx] Follow-up visit [] Physician referral [] Code/Alert [] Routine visit [] Staff referral [] Actively dying [] Patient sleeping [] Family support [] [] Out of room [] Palliative care [] [] Receiving care in room [] Pre-surgical visit [] Trauma [] Long length of stay [] ICU visit [xx] Other: ISOLATION Relational/Emotional Strength [] Patient feels connected with others/family/visitors/staff [] Distress [] Loneliness/isolation [] Abandonment Spirituality of Patient [] Person of Josefina [] Attends Jewish of their Josefina [] Believes in Prayer [] Reads Bible or Congregation materials [] There are Spiritual issues to be addressed Washerette Machine Operator Interventions [] Prayer [] Active listening [] Non-anxious presence [] Spiritual/emotional support [] Crisis/trauma care [] Spiritual counseling [] Bereavement support [] Provided bereavement packet [] Provided Bible/devotional materials [] Provided toy/stuffed animal, coloring book to patient or family member [] Provided Communion [] Anointing/[place] [] Salvation [] Completed spiritual assessment [] Other: Impact on Illness or Injury [] Angry [] Fearful [] Anxious [] Often cries [] Exhaustion [] Unable to work [] Unable to attend jain [] Unable to walk/stand [] Unable to read [] Unable to drive [] Unable to eat/drink [] Unable to sleep [] Unable to be with family [] Patient intubated [] Other: Summary Patient has now been placed in isolation. No corporate driver physical visits. Time spent with patient
[2020-12-15] MEDS: potassium chloride ER 20 mEq Tablet 40 MEQ PO ×3 (14:04→14:06)
[2020-12-15 16:00] VITALS: BP 95/63; PULSE 67; RESP 18; TEMP 36.6; O2SAT 99
[2020-12-15] MEDS: cefTRIAXone 2,000 MG in sodium chloride 0.9% (plus) 50 ML 100 MG IV (16:58)
[2020-12-15 20:00] VITALS: BP 118/72; PULSE 80; RESP 18; TEMP 36.6; O2SAT 98
[2020-12-16] VITALS: BP 99/65; PULSE 81; RESP 15; TEMP 36.4; O2SAT 99
[2020-12-16 04:00] VITALS: BP 124/83; PULSE 92; RESP 18; TEMP 36.6; O2SAT 97
[2020-12-16 05:54] VITALS: BMI 28.3
[2020-12-16] MEDS: sodium chlor 0.9% + KCl 20 mEq 20 MEQ/1,000 ML BAG 100 MEQ IV ×2 (06:14→15:11)
[2020-12-16 06:46] LABS: Basophils # 0.1 10^3/uL (0.0-0.1); Eosinophils # 0.2 10^3/uL (0.0-0.8); Eosinophils % 1.9 %; Hematocrit 36.9 % (37.0-47.0); Hemoglobin 11.9 g/dL (11.5-15.3); Lymphocytes # 5.2 10^3/uL (0.8-4.8); Lymphocytes % 45.6 %; Mean Corpuscular HGB Conc 32.2 g/dL (30.0-36.0); Mean Corpuscular Hemoglobin 27.9 pg (28.0-34.0); Mean Corpuscular Volume 86.6 fl (81-99); Mean Platelet Volume 10.3 fL (7.4-10.4); Monocytes # 0.9 10^3/uL (0.2-0.9); Monocytes % 7.5 %; Neutrophils # 4.44 10^3/uL (1.8-7.7); Neutrophils % 39.4 %; Nucleated Red Blood Cells % 0 %; Platelet Count 355 10^3/cmm (130-400); Red Blood Count 4.26 10^6/uL (4.1-5.3); Red Cell Distribution Width 13.4 % (12.1-15.1); White Blood Count 11.3 10^3/uL (4.0-10.0)
[2020-12-16 07:14] LABS: Slide Review Slide Review Perform
[2020-12-16 07:15] LABS: Alanine Aminotransferase 36 U/L (0-33); Albumin Level 3.2 g/dL (3.5-5.2); Alkaline Phosphatase 109 IU/L (35-105); Anion Gap 15.7 (5-19); Aspartate Amino Transferase 21 U/L (0-32); Blood Urea Nitrogen 4 mg/dL (6-20); Calcium 8.2 mg/dL (8.5-10.5); Carbon Dioxide 20 mmol/L (22-29); Chloride 108 mmol/L (98-107); Globulin 2.4 g/dL (1.3-4.6); Glomerular Filtration Rate 142.1 mL/min (90-130); Glucose 101 mg/dL (65-115); Magnesium 1.4 mg/dL (1.7-2.3); Osmolality Calculated 287 mOsm/kg (285-295); Phosphorus 2.9 mg/dL (2.5-4.5); Potassium 3.7 mmol/L (3.5-5.1); Sodium 140 mmol/L (136-145); Total Bilirubin 0.2 mg/dL (0.15-1.2); Total Protein 5.6 g/dL (6.6-8.7)
[2020-12-16] MEDS: acetaminophen 325 mg Tablet 650 MG PO (07:38)
[2020-12-16 08:00] VITALS: BP 108/70; PULSE 81; RESP 16; TEMP 37.2; O2SAT 98
[2020-12-16 11:49] VITALS: BP 106/69; PULSE 75; RESP 16; TEMP 36.7; O2SAT 98
--- NOTE | 2020-12-16 12:33 | PM.PN ---
Subjective Subjective: Interval history: No acute events overnight. Has remained hemodynamically stable and afebrile. During examination sitting up in bed working on her laptop. States diarrhea has improved but did have one episode of diarrheal bowel movement early today morning. Denies any dizziness. Vitals/I&O/Wt Last Vital Signs Temp 98.0 F 12/16/20 11:49 Pulse 75 12/16/20 11:49 Resp 16 12/16/20 11:49 BP 106/69 12/16/20 11:49 Pulse Ox 98 12/16/20 11:49 12/15/20 12/16/20 12/16/20 22:59 06:59 14:59 Intake Total 1191.667 / 2636.667 1250 / 3886.667 Balance 1191.667 / 2636.667 1250 / 3886.667 Weight last 48 hrs Weight 81.873 kg Weight 81.873 kg Physical Exam Narrative: EXAM NARRATIVE: General: No acute distress, AO x3, HEENT: PERRLA, pupils bilaterally equal and reactive Chest: Normal vesicular breath sounds, no added sounds, equal good air entry bilaterally CVS: S1-S2 regular, no murmurs, no tachycardia, no gallops, no rubs Abdomen: Soft, generalized tenderness more so in lower quadrant, no organomegaly, bowel sounds present Neuro: No focal deficits, no facial deformity, AO x3, power 5/5 in all limbs Data : 12/16/20 06:01 12/16/20 06:01 Micro: Microbiology 12/13/20 15:42 Blood Culture - Preliminary Blood Salmonella enterica 12/14/20 20:10 Blood Culture - Preliminary Blood NEGATIVE TO DATE 12/14/20 20:00 Blood Culture - Preliminary Blood NEGATIVE TO DATE A&P Assessment and plan (1) Salmonella bacteremia: Status: Acute (2) Infection, salmonella: Status: Acute (3) Bloody diarrhea: Status: Acute (4) Intractable vomiting: Status: Acute (5) Acute hypokalemia: Status: Acute Additional A&P Information Salmonella bacteremia: Speciation not available for now. Awaiting from [facility]. Sensitivities from stool studies appreciated. Repeat blood cultures sent. Keep mean arterial pressure over 65. Patient tolerating oral diet well. Decrease IV fluids to 50 cc/h. Will consult ID. Salmonella gastroenteritis: Continue with IV ceftriaxone 2 g daily. We will avoid Imodium. No concerns for toxic megacolon for now on CT abdomen pelvis. Isolation precautions. Famotidine oral twice daily. Zofran, Phenergan as needed. Morphine 1 mg IV every 4 hours as needed for pain. Hypokalemia/Hyponatremia: Resolved. BMP daily. Transaminitis: Most likely secondary to gastroenteritis. Stable. Will monitor hepatitis panel and HIV. Check iron panel, TSH, HbA1c, lipid panel. Full code. Regular diet SCDs. Discharge planning: If repeat blood cultures remain negative for next 24 hours we will plan to discharge on oral antibiotics tomorrow. Attestations Medical Necessity Statement*: Requires further hospitalization for management of Salmonella bacteremia and gastroenteritis Time Spent in Patient Care: Greater than 35 minutes (>than 50% of time spent in counselling and/or direct pt care on unit). Coding Level of Care Code Acute Classroom Technology Coach for [facility] Fwd Diagnoses Salmonella bacteremia R78.81 Infection, salmonella A02.9 Bloody diarrhea R19.7 Intractable vomiting R11.10 Acute hypokalemia E87.6
[2020-12-16 16:00] VITALS: BP 106/68; PULSE 84; RESP 16; TEMP 36.5; O2SAT 99
[2020-12-16] MEDS: famotidine 20 mg Tablet PO (17:49)
[2020-12-16] MEDS: cefTRIAXone 2,000 MG in sodium chloride 0.9% (plus) 50 ML 100 MG IV (17:50)
[2020-12-16 20:00] VITALS: BP 109/72; PULSE 71; RESP 16; TEMP 36.8; O2SAT 99
[2020-12-17] VITALS (7 sets, daily range): BP systolic 94–116; BP diastolic 61–78; PULSE 59–81; RESP 14–18; TEMP 33.4–37.2; O2SAT 94–100
--- NOTE | 2020-12-17 01:11 | P.CONIM_ITS ---
Providers/Reason For Consult Consulting Physician/Specialty*: Cecile Murphy MD Reason for Consult*: Salmonella sepsis Attending Physician: Skyler Baez MD Primary Care Provider: SAGE Jimenez History of Present Illness History of Present Illness Wendy Ivan is a 35 year old female currently admitted for nausea, vomiting and diarrhea that started approximately 1week prior to admission. Abdominal pain and tenesmus+. reports BM frequency at once every 30 min. Mucus +, blood+ . Admitted now for persisting diarrhea, dehydration, sepsis. Salmonella enteric PCR and then Blood and stool cx returned with Salmonella enterica. She has been on treatment with ceftriaxone 2g iv daily in keeping with susceptibility results. Reports overall improvement. No further episodes of hypothermia. hemodynamically stable. diarrhea freuency now reduced to 4-5 per day, less watery, no further mucus or blood. Abdominal pain resolved, tolerating po intake. No sick contacts. no reported h/o consuming raw onions (currently implicated in multistate outbreak). Has snakes as pets at home- however states they belong to her cousin and she is not involved in handling the snakes directly. States family follos hand hygiene after handling pets. Review of Systems General: Reports: 10 or more systems reviewed and unremarkable except in HPI and below Const: Denies: fever(s), chills or body aches Eyes: Denies: change in vision, blurry vision or photophobia ENMT: Reports: hoarseness; Denies: throat pain, enlarged tonsils, odynophagia or nasal congestion Card: Denies: chest pain, palpitations, irregular heart rhythm, edema, swelling of feet/ankles, lightheadedness, pre-syncope, dyspnea on exertion or orthopnea Resp: Denies: dyspnea, productive cough, non-productive cough, wheezing, stridor, pain on inspiration, change in phlegm color, hemoptysis or chest congestion GI: Denies: abdominal pain, nausea, vomiting, hematemesis, coffee ground emesis, dysphagia, heartburn, diarrhea, constipation, GI cramping, change in stool character, hematochezia or melena : Denies: flank pain, difficulty voiding, dysuria, urinary frequency, urinary urgency, urinary hesitancy or hematuria Musc: Denies: neck pain, back pain, extremity pain, joint swelling, joint warmth or deformity Neuro: Denies: headache(s), numbness in extremities, weakness in extremities, sensory changes, difficulty walking, frequent falls, dizziness, vertigo, behavioral changes, Slurred speech present or seizure-like activity Psych: Denies: anxiety, depression, suicidal ideation or homicidal ideation Endo: Denies: polyuria, polydipsia, tired all the time, cold intolerance or hot flashes [place]/Lymph: Denies: easy bruising or easy bleeding Meds/Allergies Home Medications and Allergies Home Medications Medication Instructions Recorded Confirmed Last Taken Type metoclopramide HCl [Reglan] 10 mg PO TID PRN #7 tab 12/07/20 12/13/20 12/11/20 Rx hydrocodone-acetaminophen 1 tab PO Q6H PRN #14 tab 12/09/20 12/13/20 12/12/20 Rx ondansetron 4 mg PO Q6H PRN #14 tab 12/09/20 12/13/20 12/13/20 07:30 Rx acetaminophen 1,000 mg PO Q4H PRN 12/13/20 12/13/20 Unknown History ciprofloxacin HCl 500 mg PO Q12H 12 Days #24 tab 12/18/20 Unknown Rx famotidine 20 mg PO BID 14 Days #28 tab 12/18/20 Unknown Rx Allergies Allergy/AdvReac Type Severity Reaction Status Date / Time No Known Allergies Allergy Verified 12/13/20 16:12 Current Medications Current Medications Generic Name Dose Route Start Last Admin Trade Name Freq PRN Reason Stop Dose Admin Acetaminophen 650 mg 12/13/20 17:30 12/16/20 07:38 Acetaminophen 325 Mg Tablet PO 650 mg Q6H PRN Administration Mild/Mod Pain Or Temp >/= 101 Famotidine 20 mg 12/16/20 18:00 12/16/20 17:49 Famotidine 20 Mg Tablet PO 20 mg BID CUONG Administration Potassium Chloride/Sodium Chloride 20 meq in 1,000 mls @ 50 mls/hr 12/13/20 17:30 12/16/20 15:11 Sodium Chlor 0.9% + Kcl 20 Meq IV 50 mls/hr .Q20H CUONG Infusion Ceftriaxone Sodium 2,000 mg/ 50 mls @ 100 mls/hr 12/15/20 18:00 12/16/20 19:16 Sodium Chloride IV Infused Q24H CUONG Infusion Protocol Ondansetron HCl 4 mg 12/13/20 17:30 12/15/20 08:04 Ondansetron 2 Mg/Ml Sdv 2 Ml IVP 4 mg Q8H PRN Administration vomiting, or N/V if npo PFSH Acute PFSH: Medical History Bloody diarrhea Infection, salmonella Pneumonia Surgical History History of appendectomy History of bilateral oophorectomy History of cholecystectomy History of hysterectomy Social History Smoking and tobacco status: former smoker Alcohol intake: never Adopted: Yes (grandparents) Lives independently: Yes Household members: spouse Housing: Manufactured/Mobile home Marital status: Number of children: 6 Highest education level completed: Some College, No Degree service: No Current occupational status: employed Pets and animals: Yes Current gender identity: Female Vitals/I&O/Wt Last Vital Signs Temp 99.0 F 12/17/20 00:00 Pulse 71 12/17/20 00:00 Resp 16 12/17/20 00:00 BP 104/69 12/17/20 00:00 Pulse Ox 99 12/17/20 00:00 12/16/20 12/16/20 12/17/20 14:59 22:59 06:59 Intake Total 1425 / 1425 Balance 1425 / 1425 Weight last 48 hrs Weight 81.873 kg Weight 81.873 kg Physical Exam Narrative: EXAM NARRATIVE: General: No acute distress, AO x3 HEENT: PERRLA, pupils bilaterally equal and reactive, pallors not present Chest: Normal vesicular breath sounds, no added sounds, equal good air entry bilaterally CVS: S1-S2 regular, no murmurs, no tachycardia, no gallops, no rubs Abdomen: Soft, nontender, no organomegaly, bowel sounds present Neuro: No focal deficits, no facial deformity, AO x3, power 5/5 in all limbs Data Micro: Micro: Microbiology 12/13/20 15:42 Blood Culture - Pr eliminary Blood Salmonella ente rex 12/14/20 20:10 Blood Culture - Pr eliminary Blood NEGATIVE TO ILEANA E 12/14/20 20:00 Blood Culture - Pr eliminary Blood NEGATIVE TO ILEANA E --------- ------ * Ampicillin <=8 S * Ceftriaxone <=1 S * Ciprofloxacin <=1 S * Trimethoprim/Sulfamethoxazole <=2/38 S Hiv, hep B, hep C serostatus: negative A&P Assessment and plan (1) Septicemia: Status: Acute (2) Salmonella bacteremia: Status: Acute Additional A&P Information Patient admitted for septicemia from Salmonella enterica spp septicemia currently improving symptomatically Blood cx last positive on 12/13, thus far negative from 12/14 Ct abdomen with enterocolitis, prominent mesenreric lymph nodes, likely reactive, no abscess, perforation. Recommend to continue Ceftriaxone 2g iv q24h while she remains inpatient. Transition to po ciprofloxacin 500 mg BID at discharge. Cipro BAMBI reported as <1, E test susceptibility N/A. Recommended duration of treatment : 14 days from clearance of bacteremia as patient otherwise not immunocompromised. No orthopedic hardware or cardiac devices. No iv ports or indwelling iv access. No h/o vascular surgeries. Educated regarding modes of transmission including ingestion of contaminated food and water. It can also be acquired via the fecal-oral route, either from other humans or farm or pet animals. Recommended hand hygiene, uncooked meat from other foods at home, sepearte chopping boards etc. Consult Attestations Medical Necessity Statement: per admitting note Coding Level of Care Code Acute Multi Mission Helicopter Aircrewman for Tristan Lopez Diagnoses Septicemia A41.9 Salmonella bacteremia R78.81
--- NOTE | 2020-12-17 05:02 | PC.NURSE ---
SHIFT SULMMARY Has had a good night. Has denied any nausea or abd pain. Reported X2 diarrhea BM's yesterday but says none tonight. IV fluids infusing at 50ml/hr rate. Says will be here until Friday to continue antibiotics. Abd is soft and says no tenderness present now
[2020-12-17 05:40] LABS: Hematocrit 36.1 % (37.0-47.0); Hemoglobin 11.9 g/dL (11.5-15.3); Mean Corpuscular Hemoglobin 27.5 pg (28.0-34.0); Mean Corpuscular Volume 83.6 fl (81-99); Mean Platelet Volume 9.7 fL (7.4-10.4); Platelet Count 346 10^3/cmm (130-400); Red Blood Count 4.32 10^6/uL (4.1-5.3); Red Cell Distribution Width 13.2 % (12.1-15.1); White Blood Count 9.8 10^3/uL (4.0-10.0)
[2020-12-17 06:08] LABS: Chol HDL Ratio 2.74 mg/dL (0.0-4.40); Cholesterol 107 mg/dL (0-200); HDL Cholesterol 39 mg/dL (60-100); LDL Cholesterol Calculated 49 mg/dL (50-129); Triglycerides 97 mg/dL (0-150); VLDL Cholestrol Calculation 19 mg/dL (0-30)
[2020-12-17 06:13] LABS: Alanine Aminotransferase 45 U/L (0-33); Albumin Level 3.2 g/dL (3.5-5.2); Alkaline Phosphatase 100 IU/L (35-105); Anion Gap 13.8 (5-19); Aspartate Amino Transferase 27 U/L (0-32); Blood Urea Nitrogen 4 mg/dL (6-20); Calcium 8.4 mg/dL (8.5-10.5); Carbon Dioxide 22 mmol/L (22-29); Chloride 107 mmol/L (98-107); Globulin 2.5 g/dL (1.3-4.6); Glomerular Filtration Rate 183.8 mL/min (90-130); Glucose 80 mg/dL (65-115); Osmolality Calculated 284 mOsm/kg (285-295); Potassium 3.8 mmol/L (3.5-5.1); Sodium 139 mmol/L (136-145); Total Bilirubin 0.2 mg/dL (0.15-1.2); Total Protein 5.7 g/dL (6.6-8.7)
[2020-12-17 06:33] LABS: Slide Review Slide Review Perform
[2020-12-17 06:36] LABS: Absolute Eosinophils 0.3 10^3/cmm (0.0-0.7); Absolute Neutrophil 3.9 10^3/cmm (1.4-6.5); Absolute Segmented Neutrophil 2.5 10/cmm (1.6-7.1); Band Neutrophils Absolute 1.4 10^3/cmm (0.0-1.2); Basophils Absolute 0.1 10^3/cmm (0.0-0.2); Eosinophils 4 %; Lymphocytes 49 %; Lymphocytes Absolute 4.9 10^3/cmm (1.2-3.4); Monocytes Absolute 0.2 10^3/cmm (0.1-0.6); Platelet Estimate Normal (Normal); Segmented Neutrophils 26 %; Total Cells Counted 100 (0-100)
[2020-12-17] MEDS: famotidine 20 mg Tablet PO ×2 (09:28→17:39)
[2020-12-17] MEDS: sodium chlor 0.9% + KCl 20 mEq 20 MEQ/1,000 ML BAG 50 MEQ IV (10:15)
--- NOTE | 2020-12-17 16:05 | P.PN_ITS ---
Subjective Subjective: Interval history: No acute event overnight. Patient has remained hemodynamically stable. States diarrhea is improving but still having up to 2-3 episodes of diarrhea daily. States appetite is improving. Vitals/I&O/Wt Last Vital Signs Temp 98.6 F 12/17/20 16:00 Pulse 74 12/17/20 16:00 Resp 16 12/17/20 16:00 BP 105/69 12/17/20 16:00 Pulse Ox 100 12/17/20 16:00 12/17/20 12/17/20 12/17/20 06:59 14:59 22:59 Intake Total 200 / 1625 953.333 / 953.333 Balance 200 / 1625 953.333 / 953.333 Weight last 48 hrs Weight 83.325 kg Weight 81.873 kg Physical Exam Narrative: EXAM NARRATIVE: General: No acute distress, AO x3, HEENT: PERRLA, pupils bilaterally equal and reactive Chest: Normal vesicular breath sounds, no added sounds, equal good air entry bilaterally CVS: S1-S2 regular, no murmurs, no tachycardia, no gallops, no rubs Abdomen: Soft, generalized tenderness more so in lower quadrant, no or ganomegaly, bowel sounds present Neuro: No focal deficits, no facial deformity, AO x3, power 5/5 in all limbs Data : 12/17/20 04:55 12/17/20 04:55 A&P Assessment and plan (1) Salmonella bacteremia: Status: Acute (2) Infection, salmonella: Status: Acute (3) Bloody diarrhea: Status: Acute (4) Intractable vomiting: Status: Acute (5) Acute hypokalemia: Status: Acute Additional A&P Information Salmonella bacteremia: Speciation not available for now. Awaiting from [facility]. Sensitivities from stool studies appreciated. Repeat blood cultures preliminary so far negative. Keep mean arterial pressure over 65. Patient tolerating oral diet well. Stop IV fluids. Appreciate ID recommendations. Salmonella gastroenteritis: Continue with IV ceftriaxone 2 g daily. We will avoid Imodium. No concerns for toxic megacolon for now on CT abdomen pelvis. Isolation precautions. Famotidine oral twice daily. Zofran, Phenergan as needed. Morphine 1 mg IV every 4 hours as needed for pain. Hypokalemia/Hyponatremia: Resolved. BMP daily. Transaminitis: Most likely secondary to gastroenteritis. Stable. Will monitor hepatitis panel and HIV. Check iron panel, TSH, HbA1c, lipid panel. Full code. Regular diet SCDs. Discharge planning: If repeat blood cultures remain negative for next 24 hours we will plan to discharge on oral antibiotics tomorrow. Attestations Medical Necessity Statement*: Requires further hospitalization for management of Salmonella bacteremia and gastroenteritis. Time Spent in Patient Care: Greater than 35 minutes (>than 50% of time spent in counselling and/or direct pt care on unit) . Coding Level of Care Code Acute Vacuum Conditioner Operator for [facility] Fwd Diagnoses Salmonella bacteremia R78.81 Infection, salmonella A02.9 Bloody diarrhea R19.7 Intractable vomiting R11.10 Acute hypokalemia E87.6
[2020-12-17] MEDS: cefTRIAXone 2,000 MG in sodium chloride 0.9% (plus) 50 ML 100 MG IV (17:39)
[2020-12-18 04:00] VITALS: BP 119/79; PULSE 62; RESP 18; TEMP 36.4; O2SAT 98
--- NOTE | 2020-12-18 05:20 | PC.NURSE ---
SHIFT SUMMARY Has had a good night without c/o nausea or diarrhea. Says she is going home today as soon as sees her. Is anxious to go. IV site became quite tender during the night and wanted it to be removed. Was not restarted per pt request
[2020-12-18 08:00] VITALS: BP 122/76; PULSE 76; RESP 18; TEMP 36.8; O2SAT 97
[2020-12-18] MEDS: famotidine 20 mg Tablet PO (08:36)
[2020-12-18 11:55] VITALS: BP 119/76; PULSE 71; RESP 16; TEMP 36.7; O2SAT 98
--- NOTE | 2020-12-18 12:35 | P.DS_ITS ---
Discharge Providers Date of Admission: 12/13/20 16:35 Date of Discharge: December 18, 2020 Attending Provider at Admission: Skyler Baez MD Attending Provider at Discharge: Skyler Baez MD Primary Care Provider: SAGE Jimenez Diagnoses at Discharge Discharge Diagnosis (1) Salmonella bacteremia: Status: Acute (2) Infection, salmonella: Status: Acute (3) Bloody diarrhea: Status: Acute (4) Intractable vomiting: Status: Acute (5) Acute hypokalemia: Status: Acute Reason for Visit Reason for Visit: N/V/D X 8 DAYS Hospital Course Hospital Course Wendy Ivan is a 35 year old female with no significant past medical history presented to the ER today with ongoing nausea vomiting, headache, diarrhea for last 8 days. Patient states she is not able to eat anything for last 8 days because of nausea and vomiting and mild abdominal pain. She also had few episodes of blood mixed in her bowel movements. Today she was called to come to the ER because stool studies done from December 09 came back positive for Salmonella. Patient states she lives with her and 6 children. Nobody she knows is having similar complaints. She denies of having any recent travels other than going to [place] few weeks ago. She drinks well water. She ate new fish few weeks ago. Denies any other change in eating habits. Usually eat cold cuts. Patient admitted to the hospital for further management of Salmonella gastroenteritis. She was started on IV antibiotics. On admission she had multiple electrolyte abnormalities which were repleted. Patient continued to have bouts of diarrhea which gradually improved. Her blood cultures from day of admission came back positive for Salmonella as well. Repeat blood cultures so far have remained negative. Patient has remained afebrile and hemodynamically stable with improvement in the bowel movements. She is able to tolerate oral diet. She has been discharged in hemodynamically stable condition on oral ciprofloxacin for 12 more days for further management of Salmonella bacteremia. She is advised to follow-up with her primary care provider within next 1 week. Physical Exam Narrative: EXAM NARRATIVE: General: No acute distress, AO x3, HEENT: PERRLA, pupils bilaterally equal and reactive Chest: Normal vesicular breath sounds, no added sounds, equal good air entry bilaterally CVS: S1-S2 regular, no murmurs, no tachycardia, no gallops, no rubs Abdomen: Soft, generalized tenderness more so in lower quadrant, no organomegaly, bowel sounds present Neuro: No focal deficits, no facial deformity, AO x3, power 5/5 in all limbs Discharge Data Data Completed and Pending: Completed Studies During Hospitalization Category Date Time Status CT abdomen pelvis w con* [id number] Rout ine Cat Scan 12/14/20 19:11 Completed Pending at discharge Category Date Time Status Blood Culture Sta t Lab 12/13/20 17:15 Results Blood Culture Sta t Lab 12/14/20 20:10 Results Addt'l Data from Hospital Stay: Laboratory Results WBC 9.8 10^3/uL (4.0- 10.0) 12/17/20 04:55 RBC 4.32 10^6/uL (4.1 -5.3) 12/17/20 04:55 Hgb 11.9 g/dL (11.5-1 5.3) 12/17/20 04:55 Hct 36.1 % (37.0-47.0 ) L 12/17/20 04:55 MCV 83.6 fl (81-99) 12/17/20 04:55 MCH 27.5 pg (28.0-34. 0) L 12/17/20 04:55 MCHC 33.0 g/dL (30.0-3 6.0) 12/17/20 04:55 RDW 13.2 % (12.1-15.1 ) 12/17/20 04:55 Plt Count 346 10^3/cmm (130 -400) 12/17/20 04:55 MPV 9.7 fL (7.4-10.4) 12/17/20 04:55 Neut % (Auto) 39.4 % 12/16/20 06:01 Lymph % (Auto) Not Reportable 12/17/20 04:55 [place] % (Auto) Not Reportable 12/17/20 04:55 Eos % (Auto) 1.9 % 12/16/20 06:01 Baso % (Auto) 1.0 % 12/16/20 06:01 Neut # (Auto) 4.44 10^3/uL (1.8 -7.7) 12/16/20 06:01 Lymph # (Auto) Not Reportable 12/17/20 04:55 [place] # (Auto) Not Reportable 12/17/20 04:55 Eos # (Auto) 0.2 10^3/uL (0.0- 0.8) 12/16/20 06:01 Baso # (Auto) 0.1 10^3/uL (0.0- 0.1) 12/16/20 06:01 Nucleated RBC % (a uto) 0 % 12/16/20 06:01 Total Counted 100 (0-100) 12/17/20 04:55 Atypical Lymphs % 1.0 % (0-5) 12/17/20 04:55 Absolute Neutrophi ls 3.9 10^3/cmm (1.4 -6.5) 12/17/20 04:55 Segmented Neutroph ils 26 % 12/17/20 04:55 Abs Segm Neuts (Ma n) 2.5 10/cmm (1.6-7 .1) 12/17/20 04:55 Band Neutrophils 14.0 % 12/17/20 04:55 Abs Band Neuts (Ma n) 1.4 10^3/cmm (0.0 -1.2) H 12/17/20 04:55 Absolute Lymphocyt es 4.9 10^3/cmm (1.2 -3.4) H 12/17/20 04:55 Lymphocytes (Manua l) 49 % 12/17/20 04:55 Monocytes (Manual) 2.0 % 12/17/20 04:55 Absolute Monocytes 0.2 10^3/cmm (0.1 -0.6) 12/17/20 04:55 Eosinophils (Manua l) 4 % 12/17/20 04:55 Absolute Eosinophi ls 0.3 10^3/cmm (0.0 -0.7) 12/17/20 04:55 Basophils (Manual) 1.0 % 12/17/20 04:55 Absolute Basophils 0.1 10^3/cmm (0.0 -0.2) 12/17/20 04:55 Metamyelocytes 3.0 % 12/17/20 04:55 Myelocytes 2.0 % 12/13/20 15:42 Nucleated RBCs # 0.0 /100WBC 12/16/20 06:01 Smudge Cells Trace 12/13/20 15:42 Platelet Estimate Normal (Normal) 12/17/20 04:55 Giant Platelets Trace 12/13/20 15:42 PT 14.20 SECONDS (12 .1-14.9) 12/14/20 04:53 INR 1.07 (0.8-1.2) 12/14/20 04:53 Sodium 139 mmol/L (136-1 45) 12/17/20 04:55 Potassium 3.8 mmol/L (3.5-5 .1) 12/17/20 04:55 Chloride 107 mmol/L (98-10 7) 12/17/20 04:55 Carbon Dioxide 22 mmol/L (22-29) 12/17/20 04:55 Anion Gap 13.8 (5-19) 12/17/20 04:55 BUN 4 mg/dL (6-20) L 12/17/20 04:55 Creatinine 0.4 mg/dL (0.5-0. 9) L 12/17/20 04:55 GFR Calculation 183.8 mL/min (90- 130) H 12/17/20 04:55 Glucose 80 mg/dL (65-115) 12/17/20 04:55 Estimat Average Gl ucose 108 12/14/20 04:53 Hemoglobin A1c 5.4 % (4.0-6.0) 12/14/20 04:53 Calculated Osmolal ity 284 mOsm/kg (285- 295) L 12/17/20 04:55 Lactic Acid 1.2 mmol/L (0.5-2 .2) 12/13/20 15:42 Calcium 8.4 mg/dL (8.5-10 .5) L 12/17/20 04:55 Phosphorus 2.9 mg/dL (2.5-4. 5) 12/16/20 06:01 Magnesium 1.4 mg/dL (1.7-2. 3) L 12/16/20 06:01 Iron 52 ug/dL (37-145) 12/13/20 15:42 TIBC 285 mcg/dl 12/13/20 15:42 % Saturation 18.2 % (20-50) L 12/13/20 15:42 Unsat Iron Binding 233 ug/dL (112-34 7) 12/13/20 15:42 Total Bilirubin 0.2 mg/dL (0.15-1 .2) 12/17/20 04:55 AST 27 U/L (0-32) 12/17/20 04:55 ALT 45 U/L (0-33) H 12/17/20 04:55 Alkaline Phosphata se 100 IU/L (35-105) 12/17/20 04:55 Total Protein 5.7 g/dL (6.6-8.7 ) L 12/17/20 04:55 Albumin 3.2 g/dL (3.5-5.2 ) L 12/17/20 04:55 Globulin 2.5 g/dL (1.3-4.6 ) 12/17/20 04:55 Triglycerides 97 mg/dL (0-150) 12/17/20 04:55 Cholesterol 107 mg/dL (0-200) 12/17/20 04:55 LDL Cholesterol, C alc 49 mg/dL (50-129) L 12/17/20 04:55 Total VLDL Cholest rocio 19 mg/dL (0-30) 12/17/20 04:55 HDL Cholesterol 39 mg/dL (60-100) L 12/17/20 04:55 Cholesterol/HDL Ra michelle 2.74 mg/dL (0.0-4 .40) 12/17/20 04:55 Lipase 171 U/L (13-60) H 12/13/20 15:42 Procalcitonin 0.15 ng/mL (0-0.5 ) 12/13/20 15:42 TSH 1.14 uIU/mL (0.27 -4.20) 12/13/20 15:42 Urine Color Straw (Yellow) 12/13/20 16:50 Urine Appearance Clear (CLEAR) 12/13/20 16:50 Urine pH 7 (5-7) 12/13/20 16:50 Ur Specific Gravit y 1.010 (1.005-1.0 30) 12/13/20 16:50 Urine Protein Neg (Negative) 12/13/20 16:50 Urine Glucose (UA) Norm (Normal) 12/13/20 16:50 Urine Ketones 1+ (Negative) H 12/13/20 16:50 Urine Blood 3+ (Negative) H 12/13/20 16:50 Urine Nitrate Negative (Negati ve) 12/13/20 16:50 Urine Bilirubin Neg (Negative) 12/13/20 16:50 Urine Urobilinogen Norm mg/dL (Negat nirmala) 12/13/20 16:50 Ur Leukocyte Monique ase Negative (Negati ve) 12/13/20 16:50 Urine RBC 5-10 /hpf (0-2) H 12/13/20 16:50 Urine WBC Not Reportable 12/13/20 16:50 Ur Squamous Epith Cells 5-10 /hpf (0-5) H 12/13/20 16:50 Ur Transition Epit h Cell 5-10 /hpf 12/13/20 16:50 Amorphous Sediment Not Reportable 12/13/20 16:50 Urine Bacteria 1+ /hpf (NONE) H 12/13/20 16:50 Urine Opiates Scre en Negative ng/mL (N egative) 12/15/20 04:00 Ur Barbiturates Sc reen Negative ng/mL (N egative) 12/15/20 04:00 Ur Phencyclidine S crn Negative ng/mL (N egative) 12/15/20 04:00 Ur Amphetamines Sc reen Negative ng/mL (N egative) 12/15/20 04:00 U Benzodiazepines Scrn Negative ng/mL (N egative) 12/15/20 04:00 Urine Cocaine Scre en Negative ng/mL (N egative) 12/15/20 04:00 U Marijuana (THC) Screen Negative ng/mL (N egative) 12/15/20 04:00 Hepatitis A IgM Ab Non-reactive (No nreactive) 12/14/20 14:10 Hep Bs Antigen Non-reactive (No nreactive) 12/14/20 14:10 Hep Bs Antibody 20.2 (11.5-1000) 12/14/20 14:10 Hep B Core Total A b Non-reactive (No nreactive) 12/14/20 14:10 Hepatitis C Antibo dy Non-reactive (No nreactive) 12/14/20 14:10 HIV 1&2 Ab & HIV 1 Ag Non-reactive (No n-Reactiv) 12/14/20 14:10 HIV 1&2 Antibody Non-reactive (No n-Reactiv) 12/14/20 14:10 Impressions Abdomen/Pelvis CT 12/14/20 19:11 IMPRESSION: 1. No acute inflammatory changes in the abdomen or pelvis. 2. Fluid-filled large bowel could represent a sequela of enterocolitis. No significant change from prior in this finding. 3. Mildly prominent increased number of mesenteric lymph nodes similar to prior imaging. Radiation Dose CTDIVOL = (mGy): DLP = 1693.82 (mGy-cm) Microbiology 12/13/20 15:42 Blood Blood Culture - Preliminary Salmonella enterica 12/14/20 20:10 Blood Blood Culture - Preliminary NEGATIVE TO DATE 12/14/20 20:00 Blood Blood Culture - Preliminary NEGATIVE TO DATE 12/13/20 17:15 Blood Blood Culture - Preliminary NEGATIVE TO DATE Vitals: Last Vital Signs Temp 98.1 F 12/18/20 11:55 Pulse 71 12/18/20 11:55 Resp 16 12/18/20 11:55 BP 119/76 12/18/20 11:55 Pulse Ox 98 12/18/20 11:55 Discharge Plan Discharge Patient Disposition: Home Condition: Stable Prescriptions: New famotidine 20 mg Tablet 20 mg PO BID 14 Days Qty: 28 RF: 0 ciprofloxacin HCl 500 mg tablet 500 mg PO Q12H 12 Days Qty: 24 RF: 0 Continued Tylenol Ex Str Rapid Release 500 mg Tablet 1,000 mg PO Q4H PRN (Reason: Pain) RF: 0 metoclopramide HCl [Reglan] 10 mg tablet 10 mg PO TID PRN (Reason: nausea and vomiting) Qty: 7 RF: 0 hydrocodone-acetaminophen 5-325 mg tablet 1 tab PO Q6H PRN (Reason: pain) Qty: 14 RF: 0 ondansetron 4 mg tablet,disintegrating 4 mg PO Q6H PRN (Reason: nausea and vomiting) Qty: 14 RF: 0 Discontinued cephalexin 500 mg capsule 500 mg PO BID 7 Days Qty: 14 RF: 0 Discharge Orders: Discharge Order (Routine); Ordered 12/18/20 Ordered By: Skyler Baez Referrals: Hellen Garrison FNP-C [Primary Care Provider] - 7-10 days Discharge Diet: Regular Discharge Activity: Resume usual activity Patient Instructions: Opioid Safety Activity Restrictions/Additional Instructions: Please take ciprofloxacin for next 12 days to finish the antibiotic therapy for Salmonella. Please follow-up with your primary care provider within next 7 to 10 days. Discharge Attestations Time Spent in Discharge Care*: greater than 30 min Specific Discharge Activities: educating patient, discussing with pcp/other providers, discussing with transplant case manager/social workers/dc planners, documenting/other paperwork and evaluating patient/reviewing data Status at Discharge: Cognitive status at discharge: cognitively intact , Behavioral status at discharge: cooperative , Functional status at discharge: independent ambulation Overall status at discharge: patient is back to baseline Quality Metrics Clinical Quality Measures During this hospital stay, did patient experience: None Coding Level of Care Code Acute Chg FW DC note Diagnoses Salmonella bacteremia R78.81 Infection, salmonella A02.9 Bloody diarrhea R19.7 Intractable vomiting R11.10 Acute hypokalemia E87.6
[2020-12-18 14:26] VITALS: BP 119/76; PULSE 71; RESP 16; TEMP 36.7; O2SAT 98
== END 2020-12-18 14:00 | disposition home or self-care (01) | DRG 372 ==
LOC: ER 17:37 → MEDSURG 18:29
PROVIDERS: Admitting Provider Student in an Organized Health Care Education/Training Program; Emergency Provider Emergency Medicine; PCP Nurse Practitioner Family; Visit Provider Student in an Organized Health Care Education/Training Program
DX: A02.0 Salmonella enteritis (principal); E87.1 Hypo-osmolality and hyponatremia; Z87.891 Personal history of nicotine dependence; E87.6 Hypokalemia; E86.0 Dehydration; Z79.891 Long term (current) use of opiate analgesic
CPT/HCPCS: 36415; 74177; 80053; 80061; 80306; 81001; 83036; 83540; 83550; 83605; 83690; 83735; 84100; 84132; 84145; 84443; 85007; 85025; 85610; 86705; 86706; 86709; 86803; 87040; 87077; 87186; 87205; 87340; 87806; 94664; 96365; 96366; 96367; 99285; J0696; J0744; J2405; J2765; J3480; J7030; Q0162; Q9967